=== PATIENT | male | born 1945 | race African-American/Black ===

== ENCOUNTER 2017-06-19 12:47 | Inpatient (IN) | payer OTHER ==
[2017-06-19] VITALS (31 sets, daily range): BP systolic 47–177; BP diastolic 29–105
[~2017-06-19] VITALS: Ht 162.6 cm; Wt 59.0 kg
[2017-06-19 13:25] LABS: BASOPHILS % (AUTO) 1.8 % (0.0-2.0); EOSINOPHILS % (AUTO) 0.4 % (0.0-3.0); MEAN CORPUSCULAR HEMOGLOBIN 28.5 PG (27.0-31.0); MEAN CORPUSCULAR HGB CONC 29.7 G/DL (32.0-36.0); MEAN CORPUSCULAR VOLUME 96 FL (80-99); MEAN PLATELET VOLUME 7.1 FL (6.5-10.1); MONOCYTES % (AUTO) 17.5 % (1.0-10.0); NEUTROPHILS % (AUTO) 48.3 % (45.0-75.0); PLATELET COUNT 147 K/UL (150-450); RED BLOOD COUNT 3.77 M/UL (4.70-6.10); WHITE BLOOD COUNT 4.8 K/UL (4.8-10.8)
[2017-06-19] MEDS ORDERED: Solu-MEDROL 125mg Inj ONE (13:27)
[2017-06-19] MEDS: Solu-MEDROL 125mg Inj IVP ONE ×2 (13:29→14:14)
[2017-06-19 13:33] LABS: INR 1.1 (0.9-1.1); PROTHROMBIN TIME 11.8 SEC (9.30-11.50)
[2017-06-19 13:43] LABS: TROPONIN I < 0.30 ng/mL (<=0.30)
[2017-06-19 13:45] LABS: ALANINE AMINOTRANSFERASE 30 U/L (3-41); ALBUMIN/GLOBULIN RATIO 0.9 (1.0-2.7); AMYLASE 140 U/L (10-110); ANION GAP 10 (5-15); ASPARTATE AMINO TRANSFERASE 34 U/L (5-40); CALCIUM 8.9 mg/dL (8.6-10.2); CARBON DIOXIDE 28 mEQ/L (20-30); CHLORIDE 98 mEQ/L (98-107); CREATININE 0.7 mg/dL (0.7-1.2); HEMOLYSIS 24; POTASSIUM 5.8 mEQ/L (3.4-4.9); SODIUM 136 mEQ/L (135-145); TOTAL PROTEIN 6.7 g/dL (6.6-8.7)
[2017-06-19 13:48] LABS: REFLEX LACTIC ACID YES OR NO YES
[2017-06-19] MEDS ORDERED: Acetaminophen 650 MG SUPP RECTAL ONE ×2 (13:55→14:15)
[2017-06-19 13:56] LABS: CKMB 4.6 ng/mL (< 6.7)
--- NOTE | 2017-06-19 14:03 | Diagnostic Imaging Report ---
Indication: Dyspnea Comparison: None A single view chest radiograph was obtained. Findings: Endotracheal tube is in good position. There is overlying precordial leads and a defibrillator pad that obscures imaging as well as moderate rotation. There are bilateral infiltrates suspected. Bones are osteopenic. Heart appears slightly enlarged. Impression: Limited evaluation. Bilateral infiltrates. Endotracheal tube in good position
[2017-06-19] MEDS ORDERED: Unasyn 3gm Inj ONE (14:13)
[2017-06-19] MEDS ORDERED: Ampicillin/Sulbactam Sod 3 GM in NS 110 ML IVPB ONE (14:15)
[2017-06-19] MEDS ORDERED: Morphine Sulfate 2mg/ml Inj IVP PRN ×2 (14:45→16:15)
[2017-06-19] MEDS ORDERED: DuoNeb 0.5-3(2.5)mg/3ml neb HHN PRN ×2 (14:45)
[2017-06-19] MEDS ORDERED: Sodium Polystyrene Sulfonate Enema RECTAL ONE (14:45)
[2017-06-19] MEDS ORDERED: Morphine Sulfate 4mg/ml Inj IVP PRN (14:45)
[2017-06-19] MEDS ORDERED: Nitroglycerin Subl 0.4mg tab (Bottle Of 25) SL PRN (14:45)
[2017-06-19] MEDS ORDERED: Levophed 4mg/4mL Inj IV ONE (15:09)
[2017-06-19] MEDS ORDERED: LISINOPRIL-HCT1 EAC2 ORAL (15:18)
[2017-06-19] MEDS ORDERED: SIMETHICONE80 MG ORAL (15:18)
[2017-06-19] MEDS ORDERED: POLYETHYLENE GL17 GM ORAL (15:18)
[2017-06-19] MEDS ORDERED: VITAMIN D400 INTLU ORAL (15:18)
[2017-06-19] MEDS ORDERED: OMEPRAZOLE20 M2 ORAL (15:18)
[2017-06-19] MEDS ORDERED: LATANOPROST2.5 ML BOTH EYES (15:18)
[2017-06-19] MEDS ORDERED: SENNOSIDES8.6 MG ORAL (15:18)
[2017-06-19] MEDS ORDERED: BRIMONIDINE TART5 ML BOTH EYES (15:18)
[2017-06-19] MEDS ORDERED: DUONEB 0.5-3(2.53 ML HHN (15:18)
--- NOTE | 2017-06-19 16:08 | Emergency Room Report ---
History of Present Illness General Chief Complaint: Altered Level of Consciousness Source: Medical Record Present Illness HPI Patient is a 72-year-old male who presented after increased altered level consciousness. Patient was brought in by EMS. Patient noted be afebrile at his senior living. Patient had prior history of prior brain dysfunction. Patient was minimally cognitive at baseline. Had temperature up to 101. Patient noted have some increased difficulty breathing. Allergies: Coded Allergies: IBUPROFEN (Verified Allergy, Unknown, 06/19/17) Patient History Past Medical History: see triage record, COPD Reviewed Nursing Documentation: PMH: Agreed, PSxH: Agreed Nursing Documentation-PMH Past Medical History: No History, Except For Hx Hypertension: Yes Hx COPD: Yes Hx Diabetes: Yes Hx Gastrointestinal Problems: Yes - prostate CA, GERD Hx Seizures: Yes Review of Systems All Other Systems: limited - by mental status and acuity Physical Exam Vital Signs Date Time Temp Pulse Resp B/P Pulse Ox O2 Delivery O2 Flow Rate FiO2 06/19/17 12:54 110 22 148/63 100 Nasal Cannula 2.0 06/19/17 13:01 100 06/19/17 14:49 97.6 General Appearance: moderate distress, severe distress, Chronically Ill, Stupor ENT: uvula midline, dry mucus membranes Neck: limited range of motion, other Respiratory: accessory muscle use, rales, rhonchi, wheezing Cardiovascular #1: tachycardia Gastrointestinal: normal bowel sounds, non tender, soft Musculoskeletal: decreased range of motion, other - bilateral lower extremity paresis Neurologic: aphasia, motor weakness Psychiatric: other - nonverbal, aphasic Skin: normal color, no rash Procedures Critical Care Time Critical Care Time Patient had a critical medical condition which untreated could potentially result in life or limb threatening injury. Total critical care time excluding procedures approximately 45 minutes. Central Line Central Line : Consent: Emergent Central Line Lumen: triple Maximal Sterile Barrier Tech: yes cap, yes mask, yes sterile gown, yes sterile gloves, yes large sterile sheet, yes hand hygiene, yes chlorhexidine prep Central Line Postion: internal jugular (R) Anesthesia: local Complications: none Central Line Post Position: sutured, good blood return, position confirmed w / CXR Attempts: Other - three, attempted right IJ without success under ultrasound guidance, right EJ unsuccessful Complications: Other - hematoma Intubation Intubation : Consent: Emergent Intubation Method: orotracheal Tube Size (cm): 7.5 Medications: Etomidate, Rocuronium Breath Sounds after Intubation: equal Intubation Complications: no complications Post Intubation Xray: Yes Attempts: Other - two Patient Tolerated: Well Complications: None Medical Decision Making Diagnostic Impression: Primary Impression: Acute respiratory failure Additional Impressions: Pneumonia Hyperkalemia ER Course Patient presented for shortness of breath.Differential included but was not limited to anemia, pneumonia, pneumothorax, myocardial infarction, pericardial effusion, congestive heart failure, acidosis. Because of complexity of patient' s case laboratory testing and imaging studies were ordered. The patient was given multiple doses of medication as per code sheet after patient became bradycardic. The patient was intubated and started on mechanical ventilation. He was given IV magnesium. The patient was noted to have some evidence of pulmonary edema. He was given IV antibiotics. Dr. Jeff Hamm was contacted for inpatient management Labs Test 06/19/17 13:10 06/19/17 15:38 White Blood Count 4.8 K/UL (4.8-10.8) Red Blood Count 3.77 M/UL (4.70-6.10) Hemoglobin 10.7 G/DL (14.2-18.0) Hematocrit 36.1 % (42.0-52.0) Mean Corpuscular Volume 96 FL (80-99) Mean Corpuscular Hemoglobin 28.5 PG (27.0-31.0) Mean Corpuscular Hemoglobin Concent 29.7 G/DL (32.0-36.0) Red Cell Distribution Width 17.0 % (11.6-14.8) Platelet Count 147 K/UL (150-450) Mean Platelet Volume 7.1 FL (6.5-10.1) Neutrophils (%) (Auto) 48.3 % (45.0-75.0) Lymphocytes (%) (Auto) 32.0 % (20.0-45.0) Monocytes (%) (Auto) 17.5 % (1.0-10.0) Eosinophils (%) (Auto) 0.4 % (0.0-3.0) Basophils (%) (Auto) 1.8 % (0.0-2.0) Prothrombin Time 11.8 SEC (9.30-11.50) Prothromb Time International Ratio 1.1 (0.9-1.1) Activated Partial Thromboplast Time 35 SEC (23-33) Sodium Level 136 mEQ/L (135-145) Potassium Level 5.8 mEQ/L (3.4-4.9) Chloride Level 98 mEQ/L (98-107) Carbon Dioxide Level 28 mEQ/L (20-30) Anion Gap 10 (5-15) Blood Urea Nitrogen 18 mg/dL (7-23) Creatinine 0.7 mg/dL (0.7-1.2) Estimat Glomerular Filtration Rate mL/min (>60) Glucose Level 122 mg/dL (74-106) Calcium Level 8.9 mg/dL (8.6-10.2) Total Bilirubin < 0.2 mg/dL (0.0-1.2) Aspartate Amino Transf (AST/SGOT) 34 U/L (5-40) Alanine Aminotransferase (ALT/SGPT) 30 U/L (3-41) Alkaline Phosphatase 103 U/L (40-129) Total Creatine Kinase 180 U/L (38-174) Creatine Kinase MB 4.6 ng/mL (< 6.7) Creatine Kinase MB Relative Index 2.5 Troponin I < 0.30 ng/mL (<=0.30) Total Protein 6.7 g/dL (6.6-8.7) Albumin 3.2 g/dL (3.5-5.2) Globulin 3.5 g/dL Albumin/Globulin Ratio 0.9 (1.0-2.7) Amylase Level 140 U/L (10-110) EKG Diagnostic Results Rate: tachycardiac - 129 Rhythm: other - afibrilation rvr ST Segments: no acute changes Rhythm Strip Diag. Results EP Interpretation: yes Rhythm: NSR - 110, no PVC's, no ectopy Last Vital Signs Date Time Temp Pulse Resp B/P Pulse Ox O2 Delivery O2 Flow Rate FiO2 06/19/17 15:28 106 16 100 06/19/17 14:49 97.6 83/64 94 Mechanical Ventilator 06/19/17 12:54 2.0 Status: unchanged Disposition: ADMITTED INPATIENT Condition: Critical Referrals: BISI KENDRICK (PCP) Dwayne Arellano Jun 19, 2017 16:08
[2017-06-19 16:24] LABS: ABG ALLEN TEST POSITIVE; ABG BASE EXCESS -3.4; ABG PCO2 70.1 mmHg (35.0-45.0)
[2017-06-19] MEDS ORDERED: D5 1/2NS 1,000 ML IV SCH (16:45)
[2017-06-19] MEDS ORDERED: NovoLOG Insulin Flexpen SUBQ SCH (17:00)
[2017-06-19] MEDS: Solu-MEDROL 125mg Inj IV SCH ×2 (18:30→23:38)
--- NOTE | 2017-06-19 19:44 | Cardiology Progress Note ---
Assessment/Plan Assessment/Plan [id number] full note dicataed Objective Last 24 Hour Vital Signs Date Time Temp Pulse Resp B/P Pulse Ox O2 Delivery O2 Flow Rate FiO2 06/19/17 18:45 71 20 100 06/19/17 17:30 122 20 119/69 99 Mechanical Ventilator 55 06/19/17 17:25 122 20 108/71 100 Mechanical Ventilator 55 06/19/17 17:00 101/60 06/19/17 17:00 121 20 55 06/19/17 16:55 115 21 100 Mechanical Ventilator 50.0 55 06/19/17 16:54 55 06/19/17 16:54 2.0 50 06/19/17 16:50 114 20 100 Mechanical Ventilator 50.0 55 06/19/17 16:30 106/60 06/19/17 16:27 116 16 117/62 99 Mechanical Ventilator 100 06/19/17 16:15 117/62 06/19/17 16:00 133/70 06/19/17 15:45 114/74 06/19/17 15:40 97.2 110 16 114/74 99 Mechanical Ventilator 100 06/19/17 15:30 55 06/19/17 15:30 72/64 06/19/17 15:28 106 16 100 06/19/17 15:26 64/50 06/19/17 15:19 76/51 06/19/17 14:49 97.6 117 14 83/64 94 Mechanical Ventilator 100 06/19/17 13:53 100 06/19/17 13:40 174 14 Mechanical Ventilator 100 06/19/17 13:40 174 14 100 06/19/17 13:38 189 34 175/105 Endotracheal Tube 100 06/19/17 13:01 54 12 Ambu-Bag 100 06/19/17 12:54 110 22 148/63 100 Nasal Cannula 2.0 Laboratory Tests Test 06/19/17 13:10 06/19/17 15:38 06/19/17 16:19 White Blood Count 4.8 K/UL (4.8-10.8) Red Blood Count 3.77 M/UL (4.70-6.10) L Hemoglobin 10.7 G/DL (14.2-18.0) L Hematocrit 36.1 % (42.0-52.0) L Mean Corpuscular Volume 96 FL (80-99) Mean Corpuscular Hemoglobin 28.5 PG (27.0-31.0) Mean Corpuscular Hemoglobin Concent 29.7 G/DL (32.0-36.0) L Red Cell Distribution Width 17.0 % (11.6-14.8) H Platelet Count 147 K/UL (150-450) L Mean Platelet Volume 7.1 FL (6.5-10.1) Neutrophils (%) (Auto) 48.3 % (45.0-75.0) Lymphocytes (%) (Auto) 32.0 % (20.0-45.0) Monocytes (%) (Auto) 17.5 % (1.0-10.0) H Eosinophils (%) (Auto) 0.4 % (0.0-3.0) Basophils (%) (Auto) 1.8 % (0.0-2.0) Prothrombin Time 11.8 SEC (9.30-11.50) H Prothromb Time International Ratio 1.1 (0.9-1.1) Activated Partial Thromboplast Time 35 SEC (23-33) H Sodium Level 136 mEQ/L (135-145) Potassium Level 5.8 mEQ/L (3.4-4.9) H Chloride Level 98 mEQ/L (98-107) Carbon Dioxide Level 28 mEQ/L (20-30) Anion Gap 10 (5-15) Blood Urea Nitrogen 18 mg/dL (7-23) Creatinine 0.7 mg/dL (0.7-1.2) Estimat Glomerular Filtration Rate mL/min (>60) Glucose Level 122 mg/dL (74-106) H Lactic Acid Level 3.50 mmol/L (0.66-2.22) H 3.40 mmol/L (0.66-2.22) H Uric Acid 6.1 mg/dL (3.0-7.5) Calcium Level 8.9 mg/dL (8.6-10.2) Total Bilirubin < 0.2 mg/dL (0.0-1.2) Aspartate Amino Transf (AST/SGOT) 34 U/L (5-40) Alanine Aminotransferase (ALT/SGPT) 30 U/L (3-41) Alkaline Phosphatase 103 U/L (40-129) Total Creatine Kinase 180 U/L (38-174) H Creatine Kinase MB 4.6 ng/mL (< 6.7) Creatine Kinase MB Relative Index 2.5 Troponin I < 0.30 ng/mL (<=0.30) Total Protein 6.7 g/dL (6.6-8.7) Albumin 3.2 g/dL (3.5-5.2) L Globulin 3.5 g/dL Albumin/Globulin Ratio 0.9 (1.0-2.7) L Amylase Level 140 U/L (10-110) H Arterial Blood pH 7.182 (7.350-7.450) Arterial Blood Partial Pressure CO2 70.1 mmHg (35.0-45.0) *H Arterial Blood Partial Pressure O2 153.1 mmHg (75.0-100.0) H Arterial Blood HCO3 25.7 mmol/L (22.0-26.0) Arterial Blood Oxygen Saturation 98.1 % (92.0-98.0) H Arterial Blood Base Excess -3.4 Raphael Test Positive MELINDA BALLARD Jun 19, 2017 19:44
[2017-06-19 20:06] LABS: ABG ALLEN TEST POSITIVE; ABG BASE EXCESS -11.6; ABG PCO2 46.3 mmHg (35.0-45.0)
[2017-06-19 20:08] LABS: BASOPHILS % (AUTO) 0.7 % (0.0-2.0); LYMPHOCYTES % (AUTO) 8.9 % (20.0-45.0); MEAN CORPUSCULAR HEMOGLOBIN 31.1 PG (27.0-31.0); MEAN CORPUSCULAR HGB CONC 32.1 G/DL (32.0-36.0); MEAN CORPUSCULAR VOLUME 97 FL (80-99); MEAN PLATELET VOLUME 7.5 FL (6.5-10.1); MONOCYTES % (AUTO) 6.3 % (1.0-10.0); NEUTROPHILS % (AUTO) 84.1 % (45.0-75.0); PLATELET COUNT 109 K/UL (150-450); RED CELL DISTRIBUTION WIDTH 16.6 % (11.6-14.8); WHITE BLOOD COUNT 9.4 K/UL (4.8-10.8)
[2017-06-19 20:22] LABS: ALANINE AMINOTRANSFERASE 441 U/L (3-41); ANION GAP 23 (5-15); ASPARTATE AMINO TRANSFERASE 728 U/L (5-40); CALCIUM 9.8 mg/dL (8.6-10.2); CARBON DIOXIDE 18 mEQ/L (20-30); CHLORIDE 100 mEQ/L (98-107); HEMOLYSIS 53; POTASSIUM 5.1 mEQ/L (3.4-4.9); SODIUM 141 mEQ/L (135-145); TOTAL PROTEIN 5.5 g/dL (6.6-8.7)
[2017-06-19] MEDS: Piperacillin/Tazobactam 3.375 GM in NS 110 ML IVPB SCH (20:27)
[2017-06-19 20:35] LABS: REFLEX LACTIC ACID YES OR NO YES
[2017-06-19 20:48] LABS: TROPONIN I 0.86 ng/mL (<=0.30)
[2017-06-19] MEDS: Heparin 5000 units/ml inj SUBQ SCH (21:00)
[2017-06-19] MEDS: D5NS 1,000 ML IV SCH (21:20)
--- NOTE | 2017-06-19 22:02 | Emergency Room Report ---
History of Present Illness General Chief Complaint: Altered Level of Consciousness Source: Medical Record Present Illness Allergies: Coded Allergies: IBUPROFEN (Verified Allergy, Unknown, 06/19/17) Nursing Documentation-[facility] Past Medical History: No History, Except For Hx Hypertension: Yes Hx COPD: Yes Hx Diabetes: Yes Hx Gastrointestinal Problems: Yes - prostate CA, GERD Hx Seizures: Yes Physical Exam Vital Signs Date Time Temp Pulse Resp B/P Pulse Ox O2 Delivery O2 Flow Rate FiO2 06/19/17 12:54 110 22 148/63 100 Nasal Cannula 2.0 06/19/17 13:01 100 06/19/17 13:38 100.6 Procedures Critical Care Time Critical Care Time i. I feel this is a highly complex case requiring extensive working including EKG/Rhythm strip, Xray/CT/US, Blood/urine lab work, repeat exams while in ED, and administration of strong opiates/narcotics for pain control, admission to hospital or close patient follow up. Total time: 30 min bedside evaluation and treatment excludes procedures (EKG). Reason for critical care: Cardiac arrest Possible complications: hypotension, hypertension, [place], shock, arrhythmias, metabolic acidosis, end organ damage, respiratory failure. Interventions: ACLS, chest compressions. Defibrillation. Course: Patient coded in the ICU. Initial rhythm asystole. CODE BLUE initiated and this patient regained pulses. Patient required defibrillation 3 times. Patient coded a second time with initial rhythm of asystole. CODE BLUE initiated and patient did regained pulses. At this time I did discuss with family poor prognosis for the patient. Shortly after patient coded a third time but did regained pulses. Prognosis is poor Consultations: nursing staff, EMS, family Performed by: Dr Henson Tolerated well condition = critical j. because of unstable vital signs this patient had a condition that could potentially threaten life or limb. I feel this is a critical patient who required my full attention while patient was considered critical. Total Critical Care Time excluding procedures was greater than 35 minutes Cardioversion Cardioversion: Consent: Emergent Indication: Other - vfib Type: Desynchonis Response: Sinus Attempts: Other - 3 Patient Tolerated: Well Complications: None CPR/Code Blue CPR/Code Blue Narrative See CODE BLUE sheet for full narrative Medical Decision Making Diagnostic Impression: Primary Impression: Acute respiratory failure Additional Impressions: Pneumonia Hyperkalemia ER Course I was called to light with his CODE BLUE in the ICU. Patient lost pulses. Initial rhythm asystole. Chest compressions started. Patient given medications. Rhythm turn to ventricular fibrillation patient was defibrillated 3 times. Patient ultimately regained pulses. Patient coded 2 more times but regained pulses after chest compressions and few rounds of medication. I did discuss with the daughter the prognosis for the patient. At this point the patient coded a total of 7 times since he came to the ER. Daughter states she will discuss with her brother the advance directives for their father. patient remains in critical condition Last Vital Signs Date Time Temp Pulse Resp B/P Pulse Ox O2 Delivery O2 Flow Rate FiO2 06/19/17 21:05 119/69 06/19/17 20:35 107 20 100 06/19/17 17:30 99 Mechanical Ventilator 06/19/17 16:55 50.0 06/19/17 15:40 97.2 Status: improved Disposition: ADMITTED INPATIENT Condition: Critical Referrals: BISI KENDRICK (PCP) LUZMARIA HENSON M.D. Jun 19, 2017 22:01
[2017-06-19] MEDS: NovoLOG Insulin Flexpen SUBQ SCH (23:38)
[2017-06-20] VITALS (66 sets, daily range): BP systolic 72–177; BP diastolic 47–98
[2017-06-20 05:28] LABS: MEAN CORPUSCULAR HEMOGLOBIN 29.1 PG (27.0-31.0); MEAN CORPUSCULAR HGB CONC 30.5 G/DL (32.0-36.0); MEAN CORPUSCULAR VOLUME 95 FL (80-99); MEAN PLATELET VOLUME 6.8 FL (6.5-10.1); PLATELET COUNT 142 K/UL (150-450); RED BLOOD COUNT 3.54 M/UL (4.70-6.10); RED CELL DISTRIBUTION WIDTH 16.9 % (11.6-14.8); WHITE BLOOD COUNT 14.9 K/UL (4.8-10.8)
[2017-06-20] MEDS: Solu-MEDROL 125mg Inj IV SCH ×3 (05:36→17:58)
[2017-06-20] MEDS: NovoLOG Insulin Flexpen SUBQ SCH ×3 (05:36→17:56)
[2017-06-20 05:41] LABS: INR 1.5 (0.9-1.1); PROTHROMBIN TIME 15.8 SEC (9.30-11.50)
--- NOTE | 2017-06-20 05:45 | Consultation ---
DATE OF CONSULTATION: 06/19/2017 CRITICAL CARE CONSULTATION CONSULTING PHYSICIAN: Nehemias Macario M.D. REASON FOR REFERRAL: Cardiopulmonary arrest. HISTORY OF PRESENT ILLNESS: This is an elderly gentleman, a resident of convalescent facility who is in the intensive care unit, has had four episodes of cardiopulmonary arrest. He was resuscitated, has had bradycardia and PEA on some other occasions here. The patient in convalescent facility was apparently more altered than normal for two hours prior to admission. The patient's family noted confused, not speaking, not feel hot to touch, has had a fever and urinary tract infection. No vomiting, bedbound, transferred to the emergency room. In the emergency room, he had several bouts of cardiac arrest and was subsequently admitted to the hospital with severe lactic acidosis. Lactic acid level of 3.5. The pH is 7.18, pCO2 of 70, pO2 of 153 with bicarbonate of 25, 98% saturation. PAST MEDICAL HISTORY: Obtained from the records here and the chart indicates history of seizures, urinary tract infection, chronic obstructive pulmonary disease, hypertension, prostate carcinoma, glaucoma, gastroesophageal reflux disease, hyperlipidemia, abnormal posture, dysphagia, sepsis, pneumonia, respiratory failure, cognitive dysfunction, diabetes mellitus, encephalopathy, and fracture of the bony thorax. MEDICATIONS: Include Tylenol, vitamin D, Advair Diskus, albuterol, calcium, Atrovent, lisinopril HCT 12.5 mg one tablet daily, multivitamin, omeprazole, and polyethylene glycol. PHYSICAL EXAMINATION: VITAL SIGNS: Blood pressure varied between 101 to 119/60 to 69, heart rates in the 71 to 122 range, saturations of 99 to 100% on 55 to 100% FiO2. GENERAL: Unresponsive elderly gentleman, on a mechanical ventilator, noncommunicative, not responsive. NECK: Supple. LUNGS: Decreased breath sounds. breath sounds noted. CARDIAC: Distant heart sounds. At the present time, regular rhythm. ABDOMEN: Somewhat distended. EXTREMITIES: There is no edema. NEUROLOGIC: Unresponsive and noncommunicative. LABORATORY AND DIAGNOSTIC DATA: Sodium 136, potassium 5.8, chloride 98, bicarbonate 28, BUN of 18, creatinine 0.7, and glucose of 122. First set of cardiac enzymes were negative. EKG shows sinus bradycardia at a rate of 55, had also EKG that showed right bundle-branch conduction with tachycardia with possible atrial fibrillation and sinus tachycardia as well. Lactic acid 3.4. Chest x-ray read by radiologist has included limited evaluation, bilateral pulmonary infiltrate . ASSESSMENT: 1. Recurrent bouts of cardiopulmonary arrest with pulseless electrical activity and bradycardia. 2. History of cognitive dysfunction. 3. Apparently recent urinary tract infection. 4. Severe metabolic acidosis. 5. Anemia. PLAN: This patient was seen in cardiology consultation. The patient's potassium was a bit elevated earlier, acidosis was severe earlier, that was prior to his last five cardiac arrests. An ABG should be ordered, repeat laboratories including potassium and magnesium should be ordered. Cardiac enzymes will be checked. Lactic acid level will be checked. Blood gases should be checked as well. The prognosis, however, is extremely poor after six arrests. I would be inclined and do hope that the family would consider decreasing the level of care in this patient so the patient does not get resuscitated again. Nonetheless, the etiologies for arrest are multiple including infectious, acidosis, electrolyte abnormalities, cardiac injury, sepsis, pulmonary issues, CVAs, and the likelihood of him having a meaningful recovery from the six arrests will be low. Nonetheless, continue treatment as so far decided on until the family decides or until he does not respond to resuscitative efforts. Critical care consultation duration was 45 minutes. Nehemias Macario M.D. DR: Onofre JOB#: [id number] CC:
[2017-06-20] MEDS: Piperacillin/Tazobactam 3.375 GM in NS 110 ML IVPB SCH ×3 (05:54→21:24)
[2017-06-20 06:02] LABS: REFLEX LACTIC ACID YES OR NO YES
[2017-06-20 06:04] LABS: ALBUMIN/GLOBULIN RATIO 0.9 (1.0-2.7); ANION GAP 22 (5-15); CALCIUM 8.9 mg/dL (8.6-10.2); CARBON DIOXIDE 18 mEQ/L (20-30); CHLORIDE 97 mEQ/L (98-107); CREATININE 1.3 mg/dL (0.7-1.2); CRP QUANT 5.8 mg/dL (< 0.5); HEMOLYSIS 26; MAGNESIUM 2.1 mg/dL (1.7-2.5); PHOSPHORUS 6.5 mg/dL (2.5-4.8); POTASSIUM 4.9 mEQ/L (3.4-4.9); SODIUM 137 mEQ/L (135-145); TOTAL PROTEIN 6.1 g/dL (6.6-8.7)
[2017-06-20 06:16] LABS: ALANINE AMINOTRANSFERASE > 700 U/L (3-41); ASPARTATE AMINO TRANSFERASE > 853 U/L (5-40)
[2017-06-20 06:17] LABS: HEMOLYSIS 40; IRON 50 ug/dL (59-158); TOTAL IRON BINDING CAPACITY 228 ug/dL (250-400)
[2017-06-20 06:50] LABS: ERYTHROCYTE SEDIMENTATION RATE 19 MM/HR (0-20)
[2017-06-20] MEDS: D5NS 1,000 ML IV SCH ×2 (06:57→17:09)
[2017-06-20 07:00] LABS: LACTATE DEHYDROGENASE 1850 U/L (135-230)
[2017-06-20 07:16] LABS: TROPONIN I 0.66 ng/mL (<=0.30)
[2017-06-20 07:19] LABS: BAND NEUTROPHILS % (MANUAL) 14 % (0-8); LYMPHOCYTES % (MANUAL) 4 % (20-45); NEUTROPHILS % (MANUAL) 79 % (45-75); TOTAL CELLS COUNTED 100
[2017-06-20 07:21] LABS: ANISOCYTOSIS 1+; BASOPHILS % (MANUAL) 0 % (0-2); EOSINOPHILS % (MANUAL) 0 % (0-3); HYPOCHROMASIA 1+; PLATELET ESTIMATE ADEQUATE
[2017-06-20 07:22] LABS: PLATELET MORPHOLOGY NORMAL
--- NOTE | 2017-06-20 07:38 | Cardiology Progress Note ---
Assessment/Plan Assessment/Plan 1. Recurrent bouts of cardiopulmonary arrest with pulseless electrical activity and bradycardia. 2. History of cognitive dysfunction. 3. Apparently recent urinary tract infection. 4. Severe metabolic acidosis. 5. Anemia. 6. 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 intermittent RBBB 8. arf 9. abn lft likely shock liver 10. coagulopathy no furtrh arrest over nite d/sw jean trejo the morning hours remain on pressor for bp support ekg reviewed no sig st changes tel reviewed all labs noted will add ggtp echo venous duplex of lwoer ext vent suppor empiric abx repeat cxr follow renal function ivf watch lft folwo coags prognosis poor post several arrest remain critically ill and at risk of dying Subjective ROS Limited/Unobtainable: Yes Objective Last 24 Hour Vital Signs Date Time Temp Pulse Resp B/P Pulse Ox O2 Delivery O2 Flow Rate FiO2 06/20/17 07:00 108 20 104/72 100 Mechanical Ventilator 70 06/20/17 06:57 104/72 06/20/17 06:45 106 20 101/66 100 Mechanical Ventilator 70 06/20/17 06:34 106 20 70 06/20/17 06:30 106 20 98/64 100 Mechanical Ventilator 70 06/20/17 06:15 106 20 98/64 100 Mechanical Ventilator 70 06/20/17 06:02 125/83 06/20/17 06:00 106 20 91/66 100 Mechanical Ventilator 70 06/20/17 05:45 111 20 122/77 100 Mechanical Ventilator 70 06/20/17 05:30 111 20 125/85 100 Mechanical Ventilator 70 06/20/17 05:15 111 20 70 06/20/17 05:15 112 20 125/85 100 Mechanical Ventilator 70 06/20/17 05:00 110 20 111/76 100 Mechanical Ventilator 70 06/20/17 05:00 111/76 06/20/17 04:30 110 20 112/74 100 Mechanical Ventilator 70 06/20/17 04:00 109 06/20/17 04:00 98.7 109 20 114/74 100 Mechanical Ventilator 70 06/20/17 04:00 114/74 06/20/17 04:00 70 06/20/17 03:30 109 20 98/66 100 Mechanical Ventilator 70 06/20/17 03:20 109 20 70 06/20/17 03:00 102/66 06/20/17 03:00 109 20 102/66 100 Mechanical Ventilator 70 06/20/17 02:30 110 20 105/78 100 Mechanical Ventilator 70 06/20/17 02:00 102/70 06/20/17 02:00 110 20 102/70 100 Mechanical Ventilator 70 06/20/17 01:45 111 20 101/70 100 Mechanical Ventilator 80 06/20/17 01:30 109 20 107/76 100 Mechanical Ventilator 80 06/20/17 01:30 107/76 06/20/17 01:22 107 20 70 06/20/17 01:15 109 20 96/65 100 Mechanical Ventilator 80 06/20/17 01:00 109 20 107/76 100 Mechanical Ventilator 80 06/20/17 01:00 107/76 06/20/17 00:45 109 20 111/78 100 Mechanical Ventilator 80 06/20/17 00:30 109 20 111/78 100 Mechanical Ventilator 80 06/20/17 00:15 109 20 108/75 100 Mechanical Ventilator 80 06/20/17 00:00 109 06/20/17 00:00 114/78 06/20/17 00:00 80 06/20/17 00:00 97.9 109 20 114/78 100 Mechanical Ventilator 80 06/19/17 23:45 110 20 96/67 100 Mechanical Ventilator 80 06/19/17 23:30 109 20 96/67 100 Mechanical Ventilator 80 06/19/17 23:20 104 20 80 06/19/17 23:15 107 20 92/65 100 Mechanical Ventilator 80 06/19/17 23:00 109 20 64/50 100 Mechanical Ventilator 80 06/19/17 23:00 64/50 06/19/17 22:45 109 20 90/65 100 Mechanical Ventilator 100 06/19/17 22:30 109 20 89/71 100 Mechanical Ventilator 100 06/19/17 22:15 110 20 89/58 100 Mechanical Ventilator 100 06/19/17 22:00 89/63 06/19/17 21:57 110 20 85/64 100 Mechanical Ventilator 100 06/19/17 21:45 110 20 95/66 100 Mechanical Ventilator 100 06/19/17 21:30 110 20 95/65 100 Mechanical Ventilator 100 06/19/17 21:15 112 20 95/63 100 Mechanical Ventilator 100 06/19/17 21:05 119/69 06/19/17 21:00 108 20 134/95 100 Mechanical Ventilator 100 06/19/17 20:45 108 20 80/61 100 Mechanical Ventilator 100 06/19/17 20:35 107 20 100 06/19/17 20:30 107 20 84/45 100 Mechanical Ventilator 100 06/19/17 20:15 107 20 90/50 100 Mechanical Ventilator 100 06/19/17 20:00 99 06/19/17 20:00 97.7 108 20 89/58 100 Mechanical Ventilator 100 06/19/17 20:00 100 06/19/17 19:45 98 20 101/64 100 Mechanical Ventilator 100 06/19/17 19:15 79 20 177/94 100 Mechanical Ventilator 100 06/19/17 19:00 63 20 47/29 100 Mechanical Ventilator 100 06/19/17 18:45 71 20 100 06/19/17 18:15 89/63 06/19/17 17:30 122 20 119/69 99 Mechanical Ventilator 55 06/19/17 17:30 122 20 119/69 100 Mechanical Ventilator 55 06/19/17 17:25 122 20 108/71 100 Mechanical Ventilator 55 06/19/17 17:00 101/60 06/19/17 17:00 121 20 55 06/19/17 17:00 122 20 90/56 99 Mechanical Ventilator 55 06/19/17 16:55 115 21 100 Mechanical Ventilator 50.0 55 06/19/17 16:54 55 06/19/17 16:54 2.0 50 06/19/17 16:50 114 20 100 Mechanical Ventilator 50.0 55 06/19/17 16:30 106/60 06/19/17 16:27 116 16 117/62 99 Mechanical Ventilator 100 06/19/17 16:15 117/62 06/19/17 16:00 133/70 06/19/17 16:00 111 16 133/70 99 Mechanical Ventilator 100 06/19/17 15:45 114/74 06/19/17 15:40 97.2 110 16 114/74 99 Mechanical Ventilator 100 06/19/17 15:30 55 06/19/17 15:30 72/64 06/19/17 15:30 101 14 94/66 100 Mechanical Ventilator 100 06/19/17 15:28 106 16 100 06/19/17 15:26 64/50 06/19/17 15:19 76/51 06/19/17 15:15 101 14 68/45 100 Mechanical Ventilator 100 06/19/17 15:00 106 14 72/54 100 Mechanical Ventilator 100 06/19/17 14:49 97.6 117 14 83/64 94 Mechanical Ventilator 100 06/19/17 14:15 141 14 94/66 96 Mechanical Ventilator 100 06/19/17 13:53 100 06/19/17 13:40 174 14 Mechanical Ventilator 100 06/19/17 13:40 174 14 100 06/19/17 13:38 100.6 189 34 175/105 Endotracheal Tube 100 06/19/17 13:01 54 12 Ambu-Bag 100 06/19/17 12:54 110 22 148/63 100 Nasal Cannula 2.0 General Appearance: on vent Neck: supple Cardiovascular: normal rate Respiratory/Chest: lungs clear - ant Abdomen: normal bowel sounds, distended Extremities: no swelling Intake and Output 06/19/17 06/20/17 19:00 07:00 Intake Total 1200 ml 2191.25 ml Output Total 500 ml Balance 1200 ml 1691.25 ml Intake IV Total 1200 ml 2191.25 ml Output Urine Total 500 ml # Voids 1 1 # Bowel Movements 2 Laboratory Tests Test 06/19/17 13:10 06/19/17 15:38 06/19/17 16:19 06/19/17 19:45 White Blood Count 4.8 K/UL (4.8-10.8) 9.4 K/UL (4.8-10.8) # Red Blood Count 3.77 M/UL (4.70-6.10) L 3.00 M/UL (4.70-6.10) L Hemoglobin 10.7 G/DL (14.2-18.0) L 9.3 G/DL (14.2-18.0) L Hematocrit 36.1 % (42.0-52.0) L 29.1 % (42.0-52.0) L Mean Corpuscular Volume 96 FL (80-99) 97 FL (80-99) Mean Corpuscular Hemoglobin 28.5 PG (27.0-31.0) 31.1 PG (27.0-31.0) H Mean Corpuscular Hemoglobin Concent 29.7 G/DL (32.0-36.0) L 32.1 G/DL (32.0-36.0) Red Cell Distribution Width 17.0 % (11.6-14.8) H 16.6 % (11.6-14.8) H Platelet Count 147 K/UL (150-450) L 109 K/UL (150-450) L Mean Platelet Volume 7.1 FL (6.5-10.1) 7.5 FL (6.5-10.1) Neutrophils (%) (Auto) 48.3 % (45.0-75.0) 84.1 % (45.0-75.0) H Lymphocytes (%) (Auto) 32.0 % (20.0-45.0) 8.9 % (20.0-45.0) L Monocytes (%) (Auto) 17.5 % (1.0-10.0) H 6.3 % (1.0-10.0) Eosinophils (%) (Auto) 0.4 % (0.0-3.0) 0.0 % (0.0-3.0) Basophils (%) (Auto) 1.8 % (0.0-2.0) 0.7 % (0.0-2.0) Prothrombin Time 11.8 SEC (9.30-11.50) H Prothromb Time International Ratio 1.1 (0.9-1.1) Activated Partial Thromboplast Time 35 SEC (23-33) H Sodium Level 136 mEQ/L (135-145) 141 mEQ/L (135-145) Potassium Level 5.8 mEQ/L (3.4-4.9) H 5.1 mEQ/L (3.4-4.9) H Chloride Level 98 mEQ/L (98-107) 100 mEQ/L (98-107) Carbon Dioxide Level 28 mEQ/L (20-30) 18 mEQ/L (20-30) L Anion Gap 10 (5-15) 23 (5-15) H Blood Urea Nitrogen 18 mg/dL (7-23) 22 mg/dL (7-23) Creatinine 0.7 mg/dL (0.7-1.2) 1.0 mg/dL (0.7-1.2) Estimat Glomerular Filtration Rate mL/min (>60) mL/min (>60) Glucose Level 122 mg/dL (74-106) H 137 mg/dL (74-106) H Lactic Acid Level 3.50 mmol/L (0.66-2.22) H 3.40 mmol/L (0.66-2.22) H 14.20 mmol/L (0.66-2.22) H Uric Acid 6.1 mg/dL (3.0-7.5) Calcium Level 8.9 mg/dL (8.6-10.2) 9.8 mg/dL (8.6-10.2) Total Bilirubin < 0.2 mg/dL (0.0-1.2) 0.7 mg/dL (0.0-1.2) Aspartate Amino Transf (AST/SGOT) 34 U/L (5-40) 728 U/L (5-40) H Alanine Aminotransferase (ALT/SGPT) 30 U/L (3-41) 441 U/L (3-41) H Alkaline Phosphatase 103 U/L (40-129) 236 U/L (40-129) H Total Creatine Kinase 180 U/L (38-174) H 288 U/L (38-174) H Creatine Kinase MB 4.6 ng/mL (< 6.7) Creatine Kinase MB Relative Index 2.5 Troponin I < 0.30 ng/mL (<=0.30) 0.86 ng/mL (<=0.30) *H Total Protein 6.7 g/dL (6.6-8.7) 5.5 g/dL (6.6-8.7) L Albumin 3.2 g/dL (3.5-5.2) L 2.8 g/dL (3.5-5.2) L Globulin 3.5 g/dL 2.7 g/dL Albumin/Globulin Ratio 0.9 (1.0-2.7) L 1.0 (1.0-2.7) Amylase Level 140 U/L (10-110) H Arterial Blood pH 7.182 (7.350-7.450) Arterial Blood Partial Pressure CO2 70.1 mmHg (35.0-45.0) *H Arterial Blood Partial Pressure O2 153.1 mmHg (75.0-100.0) H Arterial Blood HCO3 25.7 mmol/L (22.0-26.0) Arterial Blood Oxygen Saturation 98.1 % (92.0-98.0) H Arterial Blood Base Excess -3.4 Raphael Test Positive Test 06/19/17 20:00 06/20/17 04:00 Arterial Blood pH 7.168 (7.350-7.450) Arterial Blood Partial Pressure CO2 46.3 mmHg (35.0-45.0) H Arterial Blood Partial Pressure O2 423.4 mmHg (75.0-100.0) H Arterial Blood HCO3 16.4 mmol/L (22.0-26.0) L Arterial Blood Oxygen Saturation 99.4 % (92.0-98.0) H Arterial Blood Base Excess -11.6 Raphael Test Positive White Blood Count 14.9 K/UL (4.8-10.8) #H Red Blood Count 3.54 M/UL (4.70-6.10) L Hemoglobin 10.3 G/DL (14.2-18.0) L Hematocrit 33.8 % (42.0-52.0) L Mean Corpuscular Volume 95 FL (80-99) Mean Corpuscular Hemoglobin 29.1 PG (27.0-31.0) Mean Corpuscular Hemoglobin Concent 30.5 G/DL (32.0-36.0) L Red Cell Distribution Width 16.9 % (11.6-14.8) H Platelet Count 142 K/UL (150-450) L Mean Platelet Volume 6.8 FL (6.5-10.1) Neutrophils (%) (Auto) % (45.0-75.0) Lymphocytes (%) (Auto) % (20.0-45.0) Monocytes (%) (Auto) % (1.0-10.0) Eosinophils (%) (Auto) % (0.0-3.0) Basophils (%) (Auto) % (0.0-2.0) Differential Total Cells Counted 100 Neutrophils % (Manual) 79 % (45-75) H Lymphocytes % (Manual) 4 % (20-45) L Monocytes % (Manual) 3 % (1-10) Eosinophils % (Manual) 0 % (0-3) Basophils % (Manual) 0 % (0-2) Band Neutrophils 14 % (0-8) H Platelet Estimate Adequate Platelet Morphology Normal Hypochromasia 1+ Anisocytosis 1+ Erythrocyte Sedimentation Rate 19 MM/HR (0-20) Reticulocyte Count Pending Prothrombin Time 15.8 SEC (9.30-11.50) H Prothromb Time International Ratio 1.5 (0.9-1.1) H Activated Partial Thromboplast Time 33 SEC (23-33) Stool Occult Blood Pending Sodium Level 137 mEQ/L (135-145) Potassium Level 4.9 mEQ/L (3.4-4.9) Chloride Level 97 mEQ/L (98-107) L Carbon Dioxide Level 18 mEQ/L (20-30) L Anion Gap 22 (5-15) H Blood Urea Nitrogen 28 mg/dL (7-23) H Creatinine 1.3 mg/dL (0.7-1.2) H Estimat Glomerular Filtration Rate mL/min (>60) Glucose Level 239 mg/dL (74-106) #H Lactic Acid Level Pending Calcium Level 8.9 mg/dL (8.6-10.2) Phosphorus Level 6.5 mg/dL (2.5-4.8) H Magnesium Level 2.1 mg/dL (1.7-2.5) Iron Level 50 ug/dL (59-158) L Total Iron Binding Capacity 228 ug/dL (250-400) L Percent Iron Saturation 22 % (15-50) Unsaturated Iron Binding 178 ug/dL (112-346) Total Bilirubin 0.8 mg/dL (0.0-1.2) Aspartate Amino Transf (AST/SGOT) > 853 U/L (5-40) H Alanine Aminotransferase (ALT/SGPT) > 700 U/L (3-41) H Alkaline Phosphatase 241 U/L (40-129) H Lactate Dehydrogenase 1850 U/L (135-230) H Troponin I 0.66 ng/mL (<=0.30) *H C-Reactive Protein, Quantitative 5.8 mg/dL (< 0.5) H Total Protein 6.1 g/dL (6.6-8.7) L Albumin 2.9 g/dL (3.5-5.2) L Globulin 3.2 g/dL Albumin/Globulin Ratio 0.9 (1.0-2.7) L Carcinoembryonic Antigen 2.3 ng/mL Vitamin B12 Level > 2000 pg/mL (211-946) H Folate Pending MELINDA BALLARD Jun 20, 2017 07:38
[2017-06-20 07:50] LABS: PATH BLOOD SMEAR/OMC SENT TO PATHOLOGIST
[2017-06-20] MEDS: Heparin 5000 units/ml inj SUBQ SCH ×2 (09:00→20:56)
[2017-06-20] MEDS: LORazepam Inj 2mg/ml 1ml IV PRN (09:18)
--- NOTE | 2017-06-20 09:22 | Infectious Diseases Prog Note ---
Assessment/Plan Assessment/Plan ID consult dictated # [id number] Subjective Allergies: Coded Allergies: IBUPROFEN (Verified Allergy, Unknown, 06/19/17) Objective Vital Signs Last 24 Hour Vital Signs Date Time Temp Pulse Resp B/P Pulse Ox O2 Delivery O2 Flow Rate FiO2 06/20/17 08:45 108 20 70 06/20/17 08:00 60 06/20/17 08:00 108 06/20/17 07:00 108 20 104/72 100 Mechanical Ventilator 70 06/20/17 06:57 104/72 06/20/17 06:45 106 20 101/66 100 Mechanical Ventilator 70 06/20/17 06:34 106 20 70 06/20/17 06:30 106 20 98/64 100 Mechanical Ventilator 70 06/20/17 06:15 106 20 98/64 100 Mechanical Ventilator 70 06/20/17 06:02 125/83 06/20/17 06:00 106 20 91/66 100 Mechanical Ventilator 70 06/20/17 05:45 111 20 122/77 100 Mechanical Ventilator 70 06/20/17 05:30 111 20 125/85 100 Mechanical Ventilator 70 06/20/17 05:15 111 20 70 06/20/17 05:15 112 20 125/85 100 Mechanical Ventilator 70 06/20/17 05:00 110 20 111/76 100 Mechanical Ventilator 70 06/20/17 05:00 111/76 06/20/17 04:30 110 20 112/74 100 Mechanical Ventilator 70 06/20/17 04:00 109 06/20/17 04:00 98.7 109 20 114/74 100 Mechanical Ventilator 70 06/20/17 04:00 114/74 06/20/17 04:00 70 06/20/17 03:30 109 20 98/66 100 Mechanical Ventilator 70 06/20/17 03:20 109 20 70 06/20/17 03:00 102/66 06/20/17 03:00 109 20 102/66 100 Mechanical Ventilator 70 06/20/17 02:30 110 20 105/78 100 Mechanical Ventilator 70 06/20/17 02:00 102/70 06/20/17 02:00 110 20 102/70 100 Mechanical Ventilator 70 06/20/17 01:45 111 20 101/70 100 Mechanical Ventilator 80 06/20/17 01:30 109 20 107/76 100 Mechanical Ventilator 80 06/20/17 01:30 107/76 06/20/17 01:22 107 20 70 06/20/17 01:15 109 20 96/65 100 Mechanical Ventilator 80 06/20/17 01:00 109 20 107/76 100 Mechanical Ventilator 80 06/20/17 01:00 107/76 06/20/17 00:45 109 20 111/78 100 Mechanical Ventilator 80 06/20/17 00:30 109 20 111/78 100 Mechanical Ventilator 80 06/20/17 00:15 109 20 108/75 100 Mechanical Ventilator 80 06/20/17 00:00 109 06/20/17 00:00 114/78 06/20/17 00:00 80 06/20/17 00:00 97.9 109 20 114/78 100 Mechanical Ventilator 80 06/19/17 23:45 110 20 96/67 100 Mechanical Ventilator 80 06/19/17 23:30 109 20 96/67 100 Mechanical Ventilator 80 06/19/17 23:20 104 20 80 06/19/17 23:15 107 20 92/65 100 Mechanical Ventilator 80 06/19/17 23:00 109 20 64/50 100 Mechanical Ventilator 80 06/19/17 23:00 64/50 06/19/17 22:45 109 20 90/65 100 Mechanical Ventilator 100 06/19/17 22:30 109 20 89/71 100 Mechanical Ventilator 100 06/19/17 22:15 110 20 89/58 100 Mechanical Ventilator 100 06/19/17 22:00 89/63 06/19/17 21:57 110 20 85/64 100 Mechanical Ventilator 100 06/19/17 21:45 110 20 95/66 100 Mechanical Ventilator 100 06/19/17 21:30 110 20 95/65 100 Mechanical Ventilator 100 06/19/17 21:15 112 20 95/63 100 Mechanical Ventilator 100 06/19/17 21:05 119/69 06/19/17 21:00 108 20 134/95 100 Mechanical Ventilator 100 06/19/17 20:45 108 20 80/61 100 Mechanical Ventilator 100 06/19/17 20:35 107 20 100 06/19/17 20:30 107 20 84/45 100 Mechanical Ventilator 100 06/19/17 20:15 107 20 90/50 100 Mechanical Ventilator 100 06/19/17 20:00 99 06/19/17 20:00 97.7 108 20 89/58 100 Mechanical Ventilator 100 06/19/17 20:00 100 06/19/17 19:45 98 20 101/64 100 Mechanical Ventilator 100 06/19/17 19:15 79 20 177/94 100 Mechanical Ventilator 100 06/19/17 19:00 63 20 47/29 100 Mechanical Ventilator 100 06/19/17 18:45 71 20 100 06/19/17 18:15 89/63 06/19/17 17:30 122 20 119/69 99 Mechanical Ventilator 55 06/19/17 17:30 122 20 119/69 100 Mechanical Ventilator 55 06/19/17 17:25 122 20 108/71 100 Mechanical Ventilator 55 06/19/17 17:00 101/60 06/19/17 17:00 121 20 55 06/19/17 17:00 122 20 90/56 99 Mechanical Ventilator 55 06/19/17 16:55 115 21 100 Mechanical Ventilator 50.0 55 06/19/17 16:54 55 06/19/17 16:54 2.0 50 06/19/17 16:50 114 20 100 Mechanical Ventilator 50.0 55 06/19/17 16:30 106/60 06/19/17 16:27 116 16 117/62 99 Mechanical Ventilator 100 06/19/17 16:15 117/62 06/19/17 16:00 133/70 06/19/17 16:00 111 16 133/70 99 Mechanical Ventilator 100 06/19/17 15:45 114/74 06/19/17 15:40 97.2 110 16 114/74 99 Mechanical Ventilator 100 06/19/17 15:30 55 06/19/17 15:30 72/64 06/19/17 15:30 101 14 94/66 100 Mechanical Ventilator 100 06/19/17 15:28 106 16 100 06/19/17 15:26 64/50 06/19/17 15:19 76/51 06/19/17 15:15 101 14 68/45 100 Mechanical Ventilator 100 06/19/17 15:00 106 14 72/54 100 Mechanical Ventilator 100 06/19/17 14:49 97.6 117 14 83/64 94 Mechanical Ventilator 100 06/19/17 14:15 141 14 94/66 96 Mechanical Ventilator 100 06/19/17 13:53 100 06/19/17 13:40 174 14 Mechanical Ventilator 100 06/19/17 13:40 174 14 100 06/19/17 13:38 100.6 189 34 175/105 Endotracheal Tube 100 06/19/17 13:01 54 12 Ambu-Bag 100 06/19/17 12:54 110 22 148/63 100 Nasal Cannula 2.0 Height (Feet): 5 Height (Inches): 4.00 Weight (Pounds): 120 Laboratory Tests Test 06/19/17 13:10 06/19/17 15:38 06/19/17 16:19 06/19/17 19:45 White Blood Count 4.8 K/UL (4.8-10.8) 9.4 K/UL (4.8-10.8) # Red Blood Count 3.77 M/UL (4.70-6.10) L 3.00 M/UL (4.70-6.10) L Hemoglobin 10.7 G/DL (14.2-18.0) L 9.3 G/DL (14.2-18.0) L Hematocrit 36.1 % (42.0-52.0) L 29.1 % (42.0-52.0) L Mean Corpuscular Volume 96 FL (80-99) 97 FL (80-99) Mean Corpuscular Hemoglobin 28.5 PG (27.0-31.0) 31.1 PG (27.0-31.0) H Mean Corpuscular Hemoglobin Concent 29.7 G/DL (32.0-36.0) L 32.1 G/DL (32.0-36.0) Red Cell Distribution Width 17.0 % (11.6-14.8) H 16.6 % (11.6-14.8) H Platelet Count 147 K/UL (150-450) L 109 K/UL (150-450) L Mean Platelet Volume 7.1 FL (6.5-10.1) 7.5 FL (6.5-10.1) Neutrophils (%) (Auto) 48.3 % (45.0-75.0) 84.1 % (45.0-75.0) H Lymphocytes (%) (Auto) 32.0 % (20.0-45.0) 8.9 % (20.0-45.0) L Monocytes (%) (Auto) 17.5 % (1.0-10.0) H 6.3 % (1.0-10.0) Eosinophils (%) (Auto) 0.4 % (0.0-3.0) 0.0 % (0.0-3.0) Basophils (%) (Auto) 1.8 % (0.0-2.0) 0.7 % (0.0-2.0) Prothrombin Time 11.8 SEC (9.30-11.50) H Prothromb Time International Ratio 1.1 (0.9-1.1) Activated Partial Thromboplast Time 35 SEC (23-33) H Sodium Level 136 mEQ/L (135-145) 141 mEQ/L (135-145) Potassium Level 5.8 mEQ/L (3.4-4.9) H 5.1 mEQ/L (3.4-4.9) H Chloride Level 98 mEQ/L (98-107) 100 mEQ/L (98-107) Carbon Dioxide Level 28 mEQ/L (20-30) 18 mEQ/L (20-30) L Anion Gap 10 (5-15) 23 (5-15) H Blood Urea Nitrogen 18 mg/dL (7-23) 22 mg/dL (7-23) Creatinine 0.7 mg/dL (0.7-1.2) 1.0 mg/dL (0.7-1.2) Estimat Glomerular Filtration Rate mL/min (>60) mL/min (>60) Glucose Level 122 mg/dL (74-106) H 137 mg/dL (74-106) H Lactic Acid Level 3.50 mmol/L (0.66-2.22) H 3.40 mmol/L (0.66-2.22) H 14.20 mmol/L (0.66-2.22) H Uric Acid 6.1 mg/dL (3.0-7.5) Calcium Level 8.9 mg/dL (8.6-10.2) 9.8 mg/dL (8.6-10.2) Total Bilirubin < 0.2 mg/dL (0.0-1.2) 0.7 mg/dL (0.0-1.2) Aspartate Amino Transf (AST/SGOT) 34 U/L (5-40) 728 U/L (5-40) H Alanine Aminotransferase (ALT/SGPT) 30 U/L (3-41) 441 U/L (3-41) H Alkaline Phosphatase 103 U/L (40-129) 236 U/L (40-129) H Total Creatine Kinase 180 U/L (38-174) H 288 U/L (38-174) H Creatine Kinase MB 4.6 ng/mL (< 6.7) Creatine Kinase MB Relative Index 2.5 Troponin I < 0.30 ng/mL (<=0.30) 0.86 ng/mL (<=0.30) *H Total Protein 6.7 g/dL (6.6-8.7) 5.5 g/dL (6.6-8.7) L Albumin 3.2 g/dL (3.5-5.2) L 2.8 g/dL (3.5-5.2) L Globulin 3.5 g/dL 2.7 g/dL Albumin/Globulin Ratio 0.9 (1.0-2.7) L 1.0 (1.0-2.7) Amylase Level 140 U/L (10-110) H Arterial Blood pH 7.182 (7.350-7.450) Arterial Blood Partial Pressure CO2 70.1 mmHg (35.0-45.0) *H Arterial Blood Partial Pressure O2 153.1 mmHg (75.0-100.0) H Arterial Blood HCO3 25.7 mmol/L (22.0-26.0) Arterial Blood Oxygen Saturation 98.1 % (92.0-98.0) H Arterial Blood Base Excess -3.4 Raphael Test Positive Test 06/19/17 20:00 06/20/17 04:00 Arterial Blood pH 7.168 (7.350-7.450) Arterial Blood Partial Pressure CO2 46.3 mmHg (35.0-45.0) H Arterial Blood Partial Pressure O2 423.4 mmHg (75.0-100.0) H Arterial Blood HCO3 16.4 mmol/L (22.0-26.0) L Arterial Blood Oxygen Saturation 99.4 % (92.0-98.0) H Arterial Blood Base Excess -11.6 Raphael Test Positive White Blood Count 14.9 K/UL (4.8-10.8) #H Red Blood Count 3.54 M/UL (4.70-6.10) L Hemoglobin 10.3 G/DL (14.2-18.0) L Hematocrit 33.8 % (42.0-52.0) L Mean Corpuscular Volume 95 FL (80-99) Mean Corpuscular Hemoglobin 29.1 PG (27.0-31.0) Mean Corpuscular Hemoglobin Concent 30.5 G/DL (32.0-36.0) L Red Cell Distribution Width 16.9 % (11.6-14.8) H Platelet Count 142 K/UL (150-450) L Mean Platelet Volume 6.8 FL (6.5-10.1) Neutrophils (%) (Auto) % (45.0-75.0) Lymphocytes (%) (Auto) % (20.0-45.0) Monocytes (%) (Auto) % (1.0-10.0) Eosinophils (%) (Auto) % (0.0-3.0) Basophils (%) (Auto) % (0.0-2.0) Differential Total Cells Counted 100 Neutrophils % (Manual) 79 % (45-75) H Lymphocytes % (Manual) 4 % (20-45) L Monocytes % (Manual) 3 % (1-10) Eosinophils % (Manual) 0 % (0-3) Basophils % (Manual) 0 % (0-2) Band Neutrophils 14 % (0-8) H Platelet Estimate Adequate Platelet Morphology Normal Hypochromasia 1+ Anisocytosis 1+ Erythrocyte Sedimentation Rate 19 MM/HR (0-20) Reticulocyte Count 0.7 % (0.0-2.0) Prothrombin Time 15.8 SEC (9.30-11.50) H Prothromb Time International Ratio 1.5 (0.9-1.1) H Activated Partial Thromboplast Time 33 SEC (23-33) Stool Occult Blood Pending Sodium Level 137 mEQ/L (135-145) Potassium Level 4.9 mEQ/L (3.4-4.9) Chloride Level 97 mEQ/L (98-107) L Carbon Dioxide Level 18 mEQ/L (20-30) L Anion Gap 22 (5-15) H Blood Urea Nitrogen 28 mg/dL (7-23) H Creatinine 1.3 mg/dL (0.7-1.2) H Estimat Glomerular Filtration Rate mL/min (>60) Glucose Level 239 mg/dL (74-106) #H Lactic Acid Level Pending Calcium Level 8.9 mg/dL (8.6-10.2) Phosphorus Level 6.5 mg/dL (2.5-4.8) H Magnesium Level 2.1 mg/dL (1.7-2.5) Iron Level 50 ug/dL (59-158) L Total Iron Binding Capacity 228 ug/dL (250-400) L Percent Iron Saturation 22 % (15-50) Unsaturated Iron Binding 178 ug/dL (112-346) Total Bilirubin 0.8 mg/dL (0.0-1.2) Gamma Glutamyl Transpeptidase Pending Aspartate Amino Transf (AST/SGOT) > 853 U/L (5-40) H Alanine Aminotransferase (ALT/SGPT) > 700 U/L (3-41) H Alkaline Phosphatase 241 U/L (40-129) H Lactate Dehydrogenase 1850 U/L (135-230) H Troponin I 0.66 ng/mL (<=0.30) *H C-Reactive Protein, Quantitative 5.8 mg/dL (< 0.5) H Total Protein 6.1 g/dL (6.6-8.7) L Albumin 2.9 g/dL (3.5-5.2) L Globulin 3.2 g/dL Albumin/Globulin Ratio 0.9 (1.0-2.7) L Carcinoembryonic Antigen 2.3 ng/mL Vitamin B12 Level > 2000 pg/mL (211-946) H Folate Pending Current Medications Medications (Trade) Dose Ordered Sig/Darwin Route PRN Reason Start Time Stop Time Status Last Admin Dose Admin Albuterol/ Ipratropium (DuoNeb 0.5-3(2.5)mg/3ml) 3 ml Q4H PRN HHN Shortness of Breath 06/19/17 14:45 06/24/17 14:44 06/19/17 16:43 Chlorhexidine Gluconate (Britta-Hex 2%) 1 applic BEDTIME TOPIC 06/20/17 21:00 07/20/17 20:59 Dextrose (Dextrose 50%) STAT PRN IV Hypoglycemia 06/19/17 14:45 07/19/17 14:44 Dextrose/Sodium Chloride (D5ns) 1,000 ml @ 100 mls/hr Q10H IV 06/19/17 21:15 07/19/17 21:14 06/20/17 06:57 Heparin Sodium (Porcine) (Heparin 5000 units/ml) 5,000 units EVERY 12 HOURS SUBQ 06/19/17 21:00 07/19/17 20:59 Insulin Aspart EVERY 6 HOURS SUBQ 06/20/17 00:00 07/20/17 00:00 06/20/17 05:36 Lorazepam (Ativan 2mg/ml 1ml) 2 mg Q4H PRN IV For Anxiety 06/19/17 14:45 06/26/17 14:44 06/20/17 09:18 Methylprednisolone Sodium Succinate (Solu-MEDROL) 60 mg EVERY 6 HOURS IV 06/19/17 18:30 07/19/17 18:29 06/20/17 05:36 Morphine Sulfate (Morphine Sulfate) 2 mg Q4H PRN IVP moderate pain 4-6 06/19/17 16:15 06/26/17 14:44 Morphine Sulfate (Morphine Sulfate) 4 mg Q4H PRN IVP For Pain Scale 7-10 06/19/17 14:45 06/26/17 14:44 Nitroglycerin (Ntg) 0.4 mg Q5M X 3 DOSES PRN SL Prn Chest Pain 06/19/17 14:45 07/19/17 14:44 Norepinephrine Bitartrate 8 mg/ Dextrose 508 ml @ 0 mls/hr Q24H IV 06/19/17 21:00 07/19/17 20:59 06/20/17 06:02 Ondansetron HCl 4 mg 4 mg Q6H PRN IVP Nausea & Vomiting 06/19/17 14:45 07/19/17 14:44 Piperacillin Sod/ Tazobactam Sod/ Sodium Chloride (Zosyn/Sodium Chloride) 110 ml @ 27.5 mls/hr EVERY 8 HOURS IVPB 06/19/17 20:00 06/26/17 19:59 06/20/17 05:54 Vancomycin HCl (Vanco rx to dose) 1 ea DAILY PRN MISC Per rx protocol 06/20/17 09:15 07/20/17 09:14 GABINO WEINER Jun 20, 2017 09:22
--- NOTE | 2017-06-20 09:31 | Consultation ---
Consult Note Consult Note Chief Complaint: Altered Level of Consciousness Coded Allergies: IBUPROFEN (Verified Allergy, Unknown, 06/19/17) Hx Hypertension: Yes Hx COPD: Yes Hx Diabetes: Yes Hx Gastrointestinal Problems: Yes - prostate CA, GERD Hx Seizures: Yes Assessment/Plan s/p Code blue 7 times- Septic Shock on Pressors Acute renal failure Acute respiratory failure Plan: [facility]G Dialysis cath Hemodynamic support Gastric support Discussed with ADEEL NASCIMENTO Jun 20, 2017 09:31
[2017-06-20 09:42] LABS: ABG BASE EXCESS -2.3; ABG PCO2 39.2 mmHg (35.0-45.0)
[2017-06-20 09:43] LABS: ABG ALLEN TEST POSITIVE
[2017-06-20 10:02] LABS: OTHERS PATHOLOGIST COMMENT
--- NOTE | 2017-06-20 10:17 | Pulmonolgy Critical Care Note ---
Critical Care - Asmt/Plan Problems: (1) Acute respiratory failure (2) Hyperkalemia (3) Pneumonia (4) Hypoxemic encephalopathy (5) Cardiac arrest Respiratory: monitor respiratory rate, adjust FIO2, CXR Cardiac: continue pressors, continue to monitor HR/BP Renal: F/U I&O, keep IV fluid, check electrolytes Infectious Disease: check cultures, continue antibiotics Gastrointestinal: continue feedings/current rate Endocrine: monitor blood sugar, check TSH, check HgA1C Hematologic: monitor H/H Neurologic: PRN Ativan Affect: PRN ativan Prophylaxis: Protonix, Heparin Disposition: keep in ICU Notes Reviewed: cardio, renal Discussed with: nurses, consultants, 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 - Objective Last 24 Hour Vital Signs Date Time Temp Pulse Resp B/P Pulse Ox O2 Delivery O2 Flow Rate FiO2 06/20/17 08:45 108 20 70 06/20/17 08:00 60 06/20/17 08:00 108 06/20/17 07:00 108 20 104/72 100 Mechanical Ventilator 70 06/20/17 06:57 104/72 06/20/17 06:45 106 20 101/66 100 Mechanical Ventilator 70 06/20/17 06:34 106 20 70 06/20/17 06:30 106 20 98/64 100 Mechanical Ventilator 70 06/20/17 06:15 106 20 98/64 100 Mechanical Ventilator 70 06/20/17 06:02 125/83 06/20/17 06:00 106 20 91/66 100 Mechanical Ventilator 70 06/20/17 05:45 111 20 122/77 100 Mechanical Ventilator 70 06/20/17 05:30 111 20 125/85 100 Mechanical Ventilator 06/20/17 05:15 111 20 70 06/20/17 05:15 112 20 125/85 100 Mechanical Ventilator 70 06/20/17 05:00 110 20 111/76 100 Mechanical Ventilator 70 06/20/17 05:00 111/76 06/20/17 04:30 110 20 112/74 100 Mechanical Ventilator 70 06/20/17 04:00 109 06/20/17 04:00 98.7 109 20 114/74 100 Mechanical Ventilator 70 06/20/17 04:00 114/74 06/20/17 04:00 70 06/20/17 03:30 109 20 98/66 100 Mechanical Ventilator 70 06/20/17 03:20 109 20 70 06/20/17 03:00 102/66 06/20/17 03:00 109 20 102/66 100 Mechanical Ventilator 70 06/20/17 02:30 110 20 105/78 100 Mechanical Ventilator 70 06/20/17 02:00 102/70 06/20/17 02:00 110 20 102/70 100 Mechanical Ventilator 70 06/20/17 01:45 111 20 101/70 100 Mechanical Ventilator 80 06/20/17 01:30 109 20 107/76 100 Mechanical Ventilator 80 06/20/17 01:30 107/76 06/20/17 01:22 107 20 70 06/20/17 01:15 109 20 96/65 100 Mechanical Ventilator 80 06/20/17 01:00 109 20 107/76 100 Mechanical Ventilator 80 06/20/17 01:00 107/76 06/20/17 00:45 109 20 111/78 100 Mechanical Ventilator 80 06/20/17 00:30 109 20 111/78 100 Mechanical Ventilator 80 06/20/17 00:15 109 20 108/75 100 Mechanical Ventilator 80 06/20/17 00:00 109 06/20/17 00:00 114/78 06/20/17 00:00 80 06/20/17 00:00 97.9 109 20 114/78 100 Mechanical Ventilator 80 06/19/17 23:45 110 20 96/67 100 Mechanical Ventilator 80 06/19/17 23:30 109 20 96/67 100 Mechanical Ventilator 80 06/19/17 23:20 104 20 80 06/19/17 23:15 107 20 92/65 100 Mechanical Ventilator 80 06/19/17 23:00 109 20 64/50 100 Mechanical Ventilator 80 06/19/17 23:00 64/50 06/19/17 22:45 109 20 90/65 100 Mechanical Ventilator 100 06/19/17 22:30 109 20 89/71 100 Mechanical Ventilator 100 06/19/17 22:15 110 20 89/58 100 Mechanical Ventilator 100 06/19/17 22:00 89/63 06/19/17 21:57 110 20 85/64 100 Mechanical Ventilator 100 06/19/17 21:45 110 20 95/66 100 Mechanical Ventilator 100 06/19/17 21:30 110 20 95/65 100 Mechanical Ventilator 100 06/19/17 21:15 112 20 95/63 100 Mechanical Ventilator 100 06/19/17 21:05 119/69 06/19/17 21:00 108 20 134/95 100 Mechanical Ventilator 100 06/19/17 20:45 108 20 80/61 100 Mechanical Ventilator 100 06/19/17 20:35 107 20 100 06/19/17 20:30 107 20 84/45 100 Mechanical Ventilator 100 06/19/17 20:15 107 20 90/50 100 Mechanical Ventilator 100 06/19/17 20:00 99 06/19/17 20:00 97.7 108 20 89/58 100 Mechanical Ventilator 100 06/19/17 20:00 100 06/19/17 19:45 98 20 101/64 100 Mechanical Ventilator 100 06/19/17 19:15 79 20 177/94 100 Mechanical Ventilator 100 06/19/17 19:00 63 20 47/29 100 Mechanical Ventilator 100 06/19/17 18:45 71 20 100 06/19/17 18:15 89/63 06/19/17 17:30 122 20 119/69 99 Mechanical Ventilator 55 06/19/17 17:30 122 20 119/69 100 Mechanical Ventilator 55 06/19/17 17:25 122 20 108/71 100 Mechanical Ventilator 55 06/19/17 17:00 101/60 06/19/17 17:00 121 20 55 06/19/17 17:00 122 20 90/56 99 Mechanical Ventilator 55 06/19/17 16:55 115 21 100 Mechanical Ventilator 50.0 55 06/19/17 16:54 55 06/19/17 16:54 2.0 50 06/19/17 16:50 114 20 100 Mechanical Ventilator 50.0 55 06/19/17 16:30 106/60 06/19/17 16:27 116 16 117/62 99 Mechanical Ventilator 100 06/19/17 16:15 117/62 06/19/17 16:00 133/70 06/19/17 16:00 111 16 133/70 99 Mechanical Ventilator 100 06/19/17 15:45 114/74 06/19/17 15:40 97.2 110 16 114/74 99 Mechanical Ventilator 100 06/19/17 15:30 55 06/19/17 15:30 72/64 06/19/17 15:30 101 14 94/66 100 Mechanical Ventilator 100 06/19/17 15:28 106 16 100 06/19/17 15:26 64/50 06/19/17 15:19 76/51 06/19/17 15:15 101 14 68/45 100 Mechanical Ventilator 100 06/19/17 15:00 106 14 72/54 100 Mechanical Ventilator 100 06/19/17 14:49 97.6 117 14 83/64 94 Mechanical Ventilator 100 06/19/17 14:15 141 14 94/66 96 Mechanical Ventilator 100 06/19/17 13:53 100 06/19/17 13:40 174 14 Mechanical Ventilator 06/19/17 13:40 174 14 100 06/19/17 13:38 100.6 189 34 175/105 Endotracheal Tube 100 06/19/17 13:01 54 12 Ambu-Bag 100 06/19/17 12:54 110 22 148/63 100 Nasal Cannula 2.0 Status: awake Condition: critical HEENT: atraumatic Lungs: clear Heart: HR/BP stable Abdomen: soft, active bowel sounds, feeding tube Extremities: no C/C/E, edema Accucheck: 217 Critical Care - Subjective ICU Day: 2 Intubation Day: 2 Interval Events: 72 year old male with advanced emphysema ( based on CXR ) jail resident , brought in by paramedics yesterday for ALOC. He arrested a total of 7 times last time and each time he responded to resuscitation. He is orally intubated, on levophed drip 13 ug/min. FI02: 70 Vent Support Breath Rate: 20 Vent Support Mode: AC Vent Tidal Volume: 600 Sputum Amount: Small PEEP: 0.0 PIP: 50 Fluids: d5 NS 100 cc/hour I&O: Intake and Output 06/19/17 06/20/17 19:00 07:00 Intake Total 1200 ml 2191.25 ml Output Total 500 ml Balance 1200 ml 1691.25 ml Intake IV Total 1200 ml 2191.25 ml Output Urine Total 500 ml # Voids 1 1 # Bowel Movements 2 CXR: ET in good position, hyperinflated. ET-Tube: 7.5 ET Position: 25 Labs: Laboratory Tests Test 06/19/17 13:10 06/19/17 15:38 06/19/17 16:19 06/19/17 19:45 White Blood Count 4.8 K/UL (4.8-10.8) 9.4 K/UL (4.8-10.8) # Red Blood Count 3.77 M/UL (4.70-6.10) L 3.00 M/UL (4.70-6.10) L Hemoglobin 10.7 G/DL (14.2-18.0) L 9.3 G/DL (14.2-18.0) L Hematocrit 36.1 % (42.0-52.0) L 29.1 % (42.0-52.0) L Mean Corpuscular Volume 96 FL (80-99) 97 FL (80-99) Mean Corpuscular Hemoglobin 28.5 PG (27.0-31.0) 31.1 PG (27.0-31.0) H Mean Corpuscular Hemoglobin Concent 29.7 G/DL (32.0-36.0) L 32.1 G/DL (32.0-36.0) Red Cell Distribution Width 17.0 % (11.6-14.8) H 16.6 % (11.6-14.8) H Platelet Count 147 K/UL (150-450) L 109 K/UL (150-450) L Mean Platelet Volume 7.1 FL (6.5-10.1) 7.5 FL (6.5-10.1) Neutrophils (%) (Auto) 48.3 % (45.0-75.0) 84.1 % (45.0-75.0) H Lymphocytes (%) (Auto) 32.0 % (20.0-45.0) 8.9 % (20.0-45.0) L Monocytes (%) (Auto) 17.5 % (1.0-10.0) H 6.3 % (1.0-10.0) Eosinophils (%) (Auto) 0.4 % (0.0-3.0) 0.0 % (0.0-3.0) Basophils (%) (Auto) 1.8 % (0.0-2.0) 0.7 % (0.0-2.0) Prothrombin Time 11.8 SEC (9.30-11.50) H Prothromb Time International Ratio 1.1 (0.9-1.1) Activated Partial Thromboplast Time 35 SEC (23-33) H Sodium Level 136 mEQ/L (135-145) 141 mEQ/L (135-145) Potassium Level 5.8 mEQ/L (3.4-4.9) H 5.1 mEQ/L (3.4-4.9) H Chloride Level 98 mEQ/L (98-107) 100 mEQ/L (98-107) Carbon Dioxide Level 28 mEQ/L (20-30) 18 mEQ/L (20-30) L Anion Gap 10 (5-15) 23 (5-15) H Blood Urea Nitrogen 18 mg/dL (7-23) 22 mg/dL (7-23) Creatinine 0.7 mg/dL (0.7-1.2) 1.0 mg/dL (0.7-1.2) Estimat Glomerular Filtration Rate mL/min (>60) mL/min (>60) Glucose Level 122 mg/dL (74-106) H 137 mg/dL (74-106) H Lactic Acid Level 3.50 mmol/L (0.66-2.22) H 3.40 mmol/L (0.66-2.22) H 14.20 mmol/L (0.66-2.22) H Uric Acid 6.1 mg/dL (3.0-7.5) Calcium Level 8.9 mg/dL (8.6-10.2) 9.8 mg/dL (8.6-10.2) Total Bilirubin < 0.2 mg/dL (0.0-1.2) 0.7 mg/dL (0.0-1.2) Aspartate Amino Transf (AST/SGOT) 34 U/L (5-40) 728 U/L (5-40) H Alanine Aminotransferase (ALT/SGPT) 30 U/L (3-41) 441 U/L (3-41) H Alkaline Phosphatase 103 U/L (40-129) 236 U/L (40-129) H Total Creatine Kinase 180 U/L (38-174) H 288 U/L (38-174) H Creatine Kinase MB 4.6 ng/mL (< 6.7) Creatine Kinase MB Relative Index 2.5 Troponin I < 0.30 ng/mL (<=0.30) 0.86 ng/mL (<=0.30) *H Total Protein 6.7 g/dL (6.6-8.7) 5.5 g/dL (6.6-8.7) L Albumin 3.2 g/dL (3.5-5.2) L 2.8 g/dL (3.5-5.2) L Globulin 3.5 g/dL 2.7 g/dL Albumin/Globulin Ratio 0.9 (1.0-2.7) L 1.0 (1.0-2.7) Amylase Level 140 U/L (10-110) H Arterial Blood pH 7.182 (7.350-7.450) Arterial Blood Partial Pressure CO2 70.1 mmHg (35.0-45.0) *H Arterial Blood Partial Pressure O2 153.1 mmHg (75.0-100.0) H Arterial Blood HCO3 25.7 mmol/L (22.0-26.0) Arterial Blood Oxygen Saturation 98.1 % (92.0-98.0) H Arterial Blood Base Excess -3.4 Raphael Test Positive Test 06/19/17 20:00 06/20/17 04:00 06/20/17 09:34 Arterial Blood pH 7.168 (7.350-7.450) 7.378 (7.350-7.450) Arterial Blood Partial Pressure CO2 46.3 mmHg (35.0-45.0) H 39.2 mmHg (35.0-45.0) Arterial Blood Partial Pressure O2 423.4 mmHg (75.0-100.0) H 313.1 mmHg (75.0-100.0) H Arterial Blood HCO3 16.4 mmol/L (22.0-26.0) L 22.6 mmol/L (22.0-26.0) Arterial Blood Oxygen Saturation 99.4 % (92.0-98.0) H 99.3 % (92.0-98.0) H Arterial Blood Base Excess -11.6 -2.3 Raphael Test Positive Positive White Blood Count 14.9 K/UL (4.8-10.8) #H Red Blood Count 3.54 M/UL (4.70-6.10) L Hemoglobin 10.3 G/DL (14.2-18.0) L Hematocrit 33.8 % (42.0-52.0) L Mean Corpuscular Volume 95 FL (80-99) Mean Corpuscular Hemoglobin 29.1 PG (27.0-31.0) Mean Corpuscular Hemoglobin Concent 30.5 G/DL (32.0-36.0) L Red Cell Distribution Width 16.9 % (11.6-14.8) H Platelet Count 142 K/UL (150-450) L Mean Platelet Volume 6.8 FL (6.5-10.1) Neutrophils (%) (Auto) % (45.0-75.0) Lymphocytes (%) (Auto) % (20.0-45.0) Monocytes (%) (Auto) % (1.0-10.0) Eosinophils (%) (Auto) % (0.0-3.0) Basophils (%) (Auto) % (0.0-2.0) Differential Total Cells Counted 100 Neutrophils % (Manual) 79 % (45-75) H Lymphocytes % (Manual) 4 % (20-45) L Monocytes % (Manual) 3 % (1-10) Eosinophils % (Manual) 0 % (0-3) Basophils % (Manual) 0 % (0-2) Band Neutrophils 14 % (0-8) H Other Cell Type Pathologist comment Platelet Estimate Adequate Platelet Morphology Normal Hypochromasia 1+ Anisocytosis 1+ Erythrocyte Sedimentation Rate 19 MM/HR (0-20) Reticulocyte Count 0.7 % (0.0-2.0) Prothrombin Time 15.8 SEC (9.30-11.50) H Prothromb Time International Ratio 1.5 (0.9-1.1) H Activated Partial Thromboplast Time 33 SEC (23-33) Stool Occult Blood Pending Sodium Level 137 mEQ/L (135-145) Potassium Level 4.9 mEQ/L (3.4-4.9) Chloride Level 97 mEQ/L (98-107) L Carbon Dioxide Level 18 mEQ/L (20-30) L Anion Gap 22 (5-15) H Blood Urea Nitrogen 28 mg/dL (7-23) H Creatinine 1.3 mg/dL (0.7-1.2) H Estimat Glomerular Filtration Rate mL/min (>60) Glucose Level 239 mg/dL (74-106) #H Lactic Acid Level Pending Calcium Level 8.9 mg/dL (8.6-10.2) Phosphorus Level 6.5 mg/dL (2.5-4.8) H Magnesium Level 2.1 mg/dL (1.7-2.5) Iron Level 50 ug/dL (59-158) L Total Iron Binding Capacity 228 ug/dL (250-400) L Percent Iron Saturation 22 % (15-50) Unsaturated Iron Binding 178 ug/dL (112-346) Total Bilirubin 0.8 mg/dL (0.0-1.2) Gamma Glutamyl Transpeptidase 126 U/L (8-61) H Aspartate Amino Transf (AST/SGOT) > 853 U/L (5-40) H Alanine Aminotransferase (ALT/SGPT) > 700 U/L (3-41) H Alkaline Phosphatase 241 U/L (40-129) H Lactate Dehydrogenase 1850 U/L (135-230) H Troponin I 0.66 ng/mL (<=0.30) *H C-Reactive Protein, Quantitative 5.8 mg/dL (< 0.5) H Total Protein 6.1 g/dL (6.6-8.7) L Albumin 2.9 g/dL (3.5-5.2) L Globulin 3.2 g/dL Albumin/Globulin Ratio 0.9 (1.0-2.7) L Carcinoembryonic Antigen 2.3 ng/mL Vitamin B12 Level > 2000 pg/mL (211-946) H Folate Pending IVONNE BURLESON Jun 20, 2017 10:17
[2017-06-20 10:42] LABS: URIC ACID 9.1 mg/dL (3.0-7.5)
[2017-06-20] MEDS ORDERED: NS 275ml ONE (10:47)
[2017-06-20] MEDS ORDERED: D5NS 1000ml IV ONE (10:47)
[2017-06-20] MEDS: Famotidine 20 MG/ 2ML VIAL IVP SCH ×2 (11:01→20:55)
--- NOTE | 2017-06-20 11:40 | Diagnostic Imaging Report ---
Indication: Dyspnea Comparison: 06/19/17 A single view chest radiograph was obtained. Findings: Tubes and lines are stable. Lungs are hyperexpanded. There is a small right basilar pneumothorax now demonstrated. There is suspicion of at least 2 rib fractures on the right. Heart size is stable. Impression: Development of right pneumothorax. Probable rib fractures on the right side not evaluated well on the current study. COPD. Tubes and lines stable Findings were conveyed to the ICU nurse at 11:30 AM, 06/20/17
[2017-06-20] MEDS ORDERED: Vancomycin 1gm/D5W 275ml IVPB ONE ×2 (12:00)
[2017-06-20] MEDS ORDERED: Lidocaine 1% Plain 30 ml INJ SCH (13:00)
[2017-06-20] MEDS ORDERED: Heparin 2000 units/Ns 1000ml INJ SCH (13:00)
[2017-06-20 13:13] LABS: APPEARANCE,URINE CLOUDY; KETONES,URINE 1+ (NEGATIVE); LEUKOCYTE ESTERASE ,URINE 1+ (NEGATIVE); NITRITE,URINE NEGATIVE (NEGATIVE); PH,URINE 5 (4.5-8.0); PROTEIN,URINE 3+ (NEGATIVE); UROBILINOGEN,URINE NORMAL MG/DL (0.0-1.0)
[2017-06-20 13:23] LABS: BACTERIA,URINE MANY /HPF; RBC,URINE 40-60 /HPF (0 - 0); SQUAMOUS EPITHELIAL CELL,UR OCCASIONAL /LPF (NONE/OCC)
[2017-06-20 13:24] LABS: AMORPHOUS SEDIMENT,UR FEW /LPF
--- NOTE | 2017-06-20 13:32 | History & Physical ---
History and Physical History & Physicial Jeff Hamm MD Jun 20, 2017 13:32
--- NOTE | 2017-06-20 13:45 | Consultation ---
DATE OF CONSULTATION: 06/20/2017 INFECTIOUS DISEASES CONSULTATION This consult is for coverage of Dr. Serna. PRIMARY ATTENDING PHYSICIAN: Jeff Hamm M.D. REASON FOR CONSULT: Sepsis, septic shock, and pneumonia. HISTORY OF PRESENT ILLNESS: This is a 72-year-old male, who is a jail resident, was admitted yesterday because of fever and altered mental status. The patient had a temperature of 101 and shortness of breath. It was found the patient had hypercapnic respiratory failure. He was intubated. He had four episodes of cardiopulmonary arrest, which causes electrical activity, currently in the ICU and noncommunicative. PAST MEDICAL HISTORY: Positive for hypertension, diabetes mellitus, cancer, seizure disorder, and encephalopathy. ALLERGIES: Allergic to ibuprofen. MEDICATIONS: Getting his insulin, heparin, norepinephrine, Zosyn, methylprednisolone, morphine, nitroglycerin, Zofran, lorazepam, and DuoNeb inhaler. SOCIAL HISTORY: custodial resident. No other history obtainable. PHYSICAL EXAMINATION: VITAL SIGNS: Temperature is 98.7, T-max in hospital is 100.6, pulse 108, and blood pressure 104/72. GENERAL APPEARANCE: Shaking, may have seizure activity, nonresponsive. HEAD AND NECK: Orally intubated. HEART: Tachycardic. LUNGS: The patient on mechanical ventilator. Clear. ABDOMEN: Soft, nontender, and flat. EXTREMITIES: No edema. GENITOURINARY: He has condom catheter. LINES: The patient has right subclavian line that was placed in the hospital. LABORATORY AND DIAGNOSTIC DATA: WBC today is 14.9, hemoglobin 10.3, hematocrit 33.8, and platelets 142,000. Troponin was elevated, the highest one is 0.86. AST is 853, ALT 700, and alkaline phosphatase is 241. LDH is 1850. Sodium 137, potassium 4.9, chloride 97, bicarb 18, BUN 28, creatinine 1.3, and glucose is 239 . Chest x-ray shows bilateral infiltrates. IMPRESSION: 1. Sepsis, septic shock. The patient is on Levophed. 2. Pneumonia. 3. Cardiopulmonary arrest, pulseless electrical activity. 4. Hypercapnic respiratory failure. 5. Diabetes mellitus. 6. Acute renal failure, does not make any urine today. 7. Anemia. 8. History of cancer. 9. Elevated transaminase and alkaline phosphatase may be secondary to shock liver. RECOMMENDATION: We will continue with Zosyn. We will add IV vancomycin to the dose by his pharmacy. We will ask for abdominal ultrasound. We will follow up the patient's cultures. At the end of my exam, I thank Dr. Hamm for involving me in the care of this patient. Raghav Munguia M.D. DR: GLORIA JOB#: [id number] CC:
--- NOTE | 2017-06-20 16:50 | Diagnostic Imaging Report ---
Indication: Patient requires hemodialysis. Findings: After the indications, procedure, risks, complications, and alternatives of the procedure were explained, written informed consent was obtained. The neck was prepped with alcohol. All elements of maximal sterile barrier technique were followed including usage of a cap, mask, sterile gown, sterile gloves, hand hygiene and a large sterile sheet. 1% lidocaine was used to anesthetize the skin. Sonographic evaluation was performed demonstrating a patent and compressible right femoral vein. Access was obtained under real-time ultrasound guidance using an 18 gauge needle and a digital image was saved in archive. An 0.035 wire was then advanced into the vein. Needle exchanged for a dilator. A temporary hemodialysis catheter was then advanced over the wire. Wire was removed. Catheter was secured to the skin using 2-0 Prolene suture. Both ports aspirate and flush easily. The procedure was performed at the bedside. Final position of the catheter shows the tip is in the upper part of the IVC on the KUB film obtained after the procedure. Impression: Successful placement of right femoral hemodialysis catheter.
[2017-06-20] MEDS ORDERED: Dyna-Hex 2% Top Sol 8oz TOPIC SCH (21:00)
--- NOTE | 2017-06-20 21:30 | History and Physical Report ---
DATE OF ADMISSION: 06/19/2017 CHIEF COMPLAINT: Altered mental status. HISTORY OF PRESENT ILLNESS: This is a 72-year-old gentleman with past medical history significant for seizure disorder, urinary tract infection, chronic obstructive pulmonary disease, hypertension, prostate cancer, glaucoma, gastroesophageal reflux disease, dyslipidemia, abnormal posture with a dysphagia, sepsis, pneumonia, respiratory failure, cognitive dysfunction, diabetes type 2, encephalopathy, and fracture of the thoracic bone, who has presented to the hospital from [facility] after he was noted to be altered mental status. The patient shortly after initial evaluation in the emergency room was admitted to intensive care unit due to the hypoxemia and the patient throughout the hospital was noted to be in respiratory distress and intubated. The patient underwent cardiac pulmonary arrest multiple times, total of seven times overnight and subsequently, the patient was admitted to the hospital to intensive care unit due to the acute respiratory failure, most likely secondary to the pneumonia with septic shock, acute kidney injury, and hyperkalemia. PAST MEDICAL HISTORY/PAST SURGICAL HISTORY: As above. History of a seizure disorder, urinary tract infection, chronic obstructive pulmonary disease, hypertension, prostate cancer, glaucoma, gastroesophageal reflux disease, dyslipidemia, abnormal posture, dysphagia, sepsis, pneumonia, respiratory failure, cognitive dysfunction, diabetes type 2, history of encephalopathy, and fracture of the thoracic bone. MEDICATIONS: Medications at the nursing facility significant for Tylenol, vitamin D, Advair Diskus, albuterol, calcium, Atrovent, lisinopril, hydrochlorothiazide, multivitamins, omeprazole, and MiraLAX. Please see medication reconciliation. ALLERGIES: To ibuprofen. SOCIAL HISTORY: A [facility] resident. No smoking, alcohol or drugs at this time. History is very limited secondary to the patient's status intubated. No family history. Most of the history is taken from the ER chart as well as the [facility] documentation. FAMILY HISTORY: Noncontributory. REVIEW OF SYSTEMS: Very limited except altered mental status at the nursing facility. No fever or chills was reported. PHYSICAL EXAMINATION: VITAL SIGNS: Upon arrival to the ER, temperature 97.6, pulse of 110, respirations 22, and blood pressure 148/63. The patient was on nasal cannula, was noted to be stupor and not responsive with severe distress. HEENT: Pupils are equal, sluggish, and responsive. ET tube in the mouth. NG tube in the nose. NECK: Supple. No JVD. LUNGS: Good air entry and coarse breath sounds. Mechanical breath sounds. HEART: S1 and S2. Tachycardia. No murmurs or gallops. ABDOMEN: Soft, nondistended, and nontender. Midline surgical scar was noted from the umbilical area to the suprapubic area. GENITALIA: Aguilera catheter was noted. EXTREMITIES: No cyanosis, clubbing, or edema. NEUROLOGIC: Very limited secondary to the patient's status. At this time, unresponsive. Cannot follow commands and is not able to move extremities. LABORATORY DATA: On admission significant for sodium 136, potassium 5.8, chloride 98, bicarbonate 28, BUN 18, creatinine 0.7, and glucose is 122. The patient's AST was 34, ALT of 30, repeat one is 728 and 441, and alkaline phosphatase is 236. Albumin is 3.2. Amylase is 140. PT of 11, INR 1.1, and PTT of 35. ABG, pH of 7.182, pCO2 of 70, pO2 of 153, and saturating 98%. Stool for occult blood is negative. The patient's chest x-ray, it is a limited evaluation, bilateral infiltrates. ET tube in the good position. Repeat chest x-rays to the level of the right pneumothorax, probably rib fracture on the right side, not evaluated well and chronic obstructive pulmonary disease. ASSESSMENT: 1. Acute respiratory failure. 2. Hyperkalemia. 3. Pneumonia. 4. Hypoxemic encephalopathy. 5. Status post cardiopulmonary arrest. 6. Liver shock. 7. Acute kidney failure on chronic kidney disease. 8. Septic shock. 9. Right pneumothorax. PLAN: Admit the patient to intensive care unit. The patient is intubated. At this time, the patient's Code Status is Full Code. The patient overnight had multiple cardiac arrest, a total of six to seven times correction and we will follow up with the Pulmonary Critical Care consultation with Dr. Nevarez, Dr. Raghav Munguia from Infectious Disease, Dr. Nehemias Macario from Cardiology, Dr. Bennett Grey, from Nephrology. We will follow up with cultures and monitor laboratory including ABG and follow up with a repeat chest x-ray. Broad-spectrum antibiotic to vancomycin and Zosyn and nebulizer treatment, Solu-Medrol 60 mg IV q.6. and follow up with repeat ABG. Jeff Hamm M.D. DR: GERALD JOB#: [id number] CC:
[2017-06-20 23:00] LABS: REFLEX LACTIC ACID YES OR NO YES
[2017-06-21] VITALS (31 sets, daily range): BP systolic 81–200; BP diastolic 56–109
[2017-06-21] MEDS: Solu-MEDROL 125mg Inj IV SCH ×3 (00:24→11:50)
[2017-06-21] MEDS: NovoLOG Insulin Flexpen SUBQ SCH ×3 (00:27→11:54)
--- NOTE | 2017-06-21 02:14 | Emergency Room Report ---
History of Present Illness General Chief Complaint: Altered Level of Consciousness Source: Medical Record Present Illness Allergies: Coded Allergies: IBUPROFEN (Verified Allergy, Unknown, 06/19/17) Nursing Documentation-[facility] Past Medical History: No History, Except For Hx Cardiac Problems: Yes Hx Hypertension: Yes Hx COPD: Yes Hx Diabetes: Yes Hx Cancer: Yes Hx Gastrointestinal Problems: Yes Hx Neurological Problems: Yes Hx Seizures: Yes Hx Dysphasia: Yes Physical Exam Vital Signs Date Time Temp Pulse Resp B/P Pulse Ox O2 Delivery O2 Flow Rate FiO2 06/19/17 12:54 110 22 148/63 100 Nasal Cannula 2.0 06/19/17 13:01 100 06/19/17 13:38 100.6 Medical Decision Making Diagnostic Impression: Primary Impression: Acute respiratory failure Additional Impressions: Pneumonia Hyperkalemia Cardiac arrest ER Course This is unfortunate 72-year-old male who is admitted for respiratory failure was intubated. He also has hyperkalemia and had dialysis. He coded several times in the ER and the ICU also. I was called to the last code. He became asystolic and CPR was in progress on my arrival. Patient received 1 dose of epinephrine already. He was pulse with CPR. No pulse without it. He received a second dose of epinephrine. After this he did have spontaneous pulse. The os was strong. A code was then called and patient continue his current medical regimen. Last Vital Signs Date Time Temp Pulse Resp B/P Pulse Ox O2 Delivery O2 Flow Rate FiO2 06/21/17 01:30 107 41 90/63 100 Mechanical Ventilator 80 06/21/17 00:00 98.9 06/19/17 16:55 50.0 Disposition: ADMITTED INPATIENT Condition: Critical Referrals: BISI KENDRICK (PCP) MAREK PARTIDA M.D. Jun 21, 2017 02:14
[2017-06-21] MEDS: D5NS 1,000 ML IV SCH (04:01)
[2017-06-21 04:24] LABS: MEAN CORPUSCULAR HEMOGLOBIN 29.7 PG (27.0-31.0); MEAN CORPUSCULAR HGB CONC 31.4 G/DL (32.0-36.0); MEAN CORPUSCULAR VOLUME 94 FL (80-99); MEAN PLATELET VOLUME 8.8 FL (6.5-10.1); PLATELET COUNT 105 K/UL (150-450); RED BLOOD COUNT 3.08 M/UL (4.70-6.10); RED CELL DISTRIBUTION WIDTH 16.6 % (11.6-14.8); WHITE BLOOD COUNT 12.7 K/UL (4.8-10.8)
[2017-06-21 04:35] LABS: CRP QUANT 8.1 mg/dL (< 0.5); PHOSPHORUS 7.6 mg/dL (2.5-4.8); URIC ACID 10.4 mg/dL (3.0-7.5)
[2017-06-21 04:40] LABS: ALBUMIN/GLOBULIN RATIO 0.9 (1.0-2.7); ANION GAP 16 (5-15); CALCIUM 7.7 mg/dL (8.6-10.2); CARBON DIOXIDE 19 mEQ/L (20-30); CHLORIDE 97 mEQ/L (98-107); CREATININE 2.7 mg/dL (0.7-1.2); HEMOLYSIS 22; POTASSIUM 5.6 mEQ/L (3.4-4.9); SODIUM 132 mEQ/L (135-145); TOTAL PROTEIN 6.3 g/dL (6.6-8.7)
[2017-06-21 04:44] LABS: REFLEX LACTIC ACID YES OR NO YES
[2017-06-21 04:46] LABS: TROPONIN I 0.57 ng/mL (<=0.30)
[2017-06-21 05:22] LABS: ALANINE AMINOTRANSFERASE 3232 U/L (3-41); ASPARTATE AMINO TRANSFERASE 4992 U/L (5-40)
[2017-06-21] MEDS: Piperacillin/Tazobactam 3.375 GM in NS 110 ML IVPB SCH ×2 (05:46→13:44)
[2017-06-21 08:21] LABS: ABG PCO2 45.5 mmHg (35.0-45.0)
[2017-06-21 08:22] LABS: ABG ALLEN TEST POSITIVE; ABG BASE EXCESS -7.2
[2017-06-21] MEDS: Heparin 5000 units/ml inj SUBQ SCH (09:00)
[2017-06-21] MEDS: Famotidine 20 MG/ 2ML VIAL IVP SCH (09:16)
[2017-06-21] MEDS ORDERED: Calcium Gluconate 1gm/10ml vial IVP ONE (09:19)
--- NOTE | 2017-06-21 09:24 | Pulmonolgy Critical Care Note ---
Critical Care - Asmt/Plan Problems: (1) Acute respiratory failure (2) Hyperkalemia (3) Pneumonia (4) Hypoxemic encephalopathy (5) Cardiac arrest Respiratory: monitor respiratory rate, adjust FIO2 Cardiac: continue to monitor HR/BP Renal: F/U I&O, keep IV fluid Infectious Disease: check cultures Gastrointestinal: continue feedings/current rate Endocrine: monitor blood sugar, check TSH, continue sliding scale insulin Hematologic: monitor H/H, transfuse if hgb<8.5 Neurologic: PRN Ativan, PRN Morphine, keep patient comfortable Affect: PRN ativan Time Spent (Minutes): 40 Notes Reviewed: cardio, renal Discussed with: nurses, consultants, lead case managerstudy manager - Objective Last 24 Hour Vital Signs Date Time Temp Pulse Resp B/P Pulse Ox O2 Delivery O2 Flow Rate FiO2 06/21/17 08:30 106 20 110/85 100 Mechanical Ventilator 50 06/21/17 08:00 108 06/21/17 08:00 50 06/21/17 08:00 107 20 113/75 100 Mechanical Ventilator 50 06/21/17 07:45 106 20 102/79 100 Mechanical Ventilator 50 06/21/17 07:30 109 20 126/93 100 Mechanical Ventilator 50 06/21/17 07:15 108 20 172/97 100 Mechanical Ventilator 50 06/21/17 07:00 99.1 112 20 153/94 100 Mechanical Ventilator 50 06/21/17 07:00 109 20 50 06/21/17 07:00 154/97 06/21/17 06:37 65/47 06/21/17 06:30 111 21 200/109 100 Mechanical Ventilator 60 06/21/17 06:00 111 20 132/87 100 Mechanical Ventilator 60 06/21/17 06:00 132/87 06/21/17 05:30 111 20 126/88 100 Mechanical Ventilator 60 06/21/17 05:16 111 20 60 06/21/17 05:00 114/76 06/21/17 05:00 110 20 114/76 100 Mechanical Ventilator 60 06/21/17 04:30 113 26 114/81 100 Mechanical Ventilator 60 06/21/17 04:00 60 06/21/17 04:00 99.4 113 30 114/87 100 Mechanical Ventilator 80 06/21/17 04:00 114/87 06/21/17 04:00 110 06/21/17 03:30 112 37 125/71 100 Mechanical Ventilator 80 06/21/17 03:15 104 20 60 06/21/17 03:00 121/87 06/21/17 03:00 112 42 121/87 100 Mechanical Ventilator 80 06/21/17 02:30 112 36 114/88 100 Mechanical Ventilator 80 06/21/17 02:00 106 31 81/60 100 Mechanical Ventilator 80 06/21/17 02:00 81/60 06/21/17 01:30 107 41 90/63 100 Mechanical Ventilator 80 06/21/17 01:00 122/78 06/21/17 01:00 113 35 122/78 100 Mechanical Ventilator 80 06/21/17 00:55 113 20 80 06/21/17 00:30 112 35 127/84 100 Mechanical Ventilator 80 06/21/17 00:00 98.9 111 38 109/80 100 Mechanical Ventilator 80 06/21/17 00:00 109/80 06/21/17 00:00 111 06/21/17 00:00 80 06/20/17 23:30 103 35 80/58 100 Mechanical Ventilator 80 06/20/17 23:29 89/64 06/20/17 23:00 123/80 06/20/17 23:00 108 20 123/80 100 Mechanical Ventilator 100 06/20/17 22:40 98 20 100 06/20/17 22:30 60 13 170/93 100 Mechanical Ventilator 100 06/20/17 22:00 103 23 93/72 100 Mechanical Ventilator 60 06/20/17 22:00 93/72 06/20/17 21:30 105 20 91/66 100 Mechanical Ventilator 60 06/20/17 21:10 106 20 50 06/20/17 21:00 105 18 106/67 100 Mechanical Ventilator 60 06/20/17 21:00 106/67 06/20/17 20:30 105 23 99/65 100 Mechanical Ventilator 60 06/20/17 20:00 102 06/20/17 20:00 96/60 06/20/17 20:00 102 20 96/60 100 Mechanical Ventilator 60 06/20/17 20:00 60 06/20/17 19:30 98.9 94 14 72/47 100 Mechanical Ventilator 60 06/20/17 19:15 97 20 50 06/20/17 19:00 104 18 177/98 100 Mechanical Ventilator 60 06/20/17 18:30 106 16 154/80 100 Mechanical Ventilator 60 06/20/17 18:00 105 20 145/95 100 Mechanical Ventilator 60 06/20/17 17:30 106 15 165/95 98 Mechanical Ventilator 60 06/20/17 17:10 140/88 06/20/17 17:00 107 16 140/88 98 Mechanical Ventilator 60 06/20/17 17:00 50 06/20/17 16:44 107 20 50 06/20/17 16:30 106 20 144/62 98 Mechanical Ventilator 60 06/20/17 16:00 99.5 108 24 106/68 98 Mechanical Ventilator 60 06/20/17 16:00 109 06/20/17 16:00 60 06/20/17 15:30 110 22 171/91 98 Mechanical Ventilator 60 06/20/17 15:00 111 22 156/96 98 Mechanical Ventilator 60 06/20/17 14:48 112 20 60 06/20/17 14:30 114 22 133/95 98 Mechanical Ventilator 60 06/20/17 14:00 115 20 134/93 98 Mechanical Ventilator 60 06/20/17 13:30 117 20 112/83 98 Mechanical Ventilator 60 06/20/17 13:00 115 22 105/75 100 Mechanical Ventilator 60 06/20/17 12:31 118 20 60 06/20/17 12:30 99.7 119 23 92/77 100 Mechanical Ventilator 60 06/20/17 12:00 119 24 105/75 100 Mechanical Ventilator 60 06/20/17 12:00 119 06/20/17 11:45 118 25 93/77 100 Mechanical Ventilator 60 06/20/17 11:30 118 30 112/73 100 Mechanical Ventilator 60 06/20/17 11:15 114 25 88/64 100 Mechanical Ventilator 60 06/20/17 11:00 115 26 122/80 100 Mechanical Ventilator 60 06/20/17 10:45 114 20 113/95 100 Mechanical Ventilator 60 06/20/17 10:31 117 20 60 06/20/17 10:30 114 20 86/60 100 Mechanical Ventilator 60 06/20/17 10:15 113 20 87/52 100 Mechanical Ventilator 60 06/20/17 10:00 111 20 80/60 100 Mechanical Ventilator 60 06/20/17 09:45 60 06/20/17 09:45 111 20 92/66 100 Mechanical Ventilator 70 06/20/17 09:30 112 20 113/70 100 Mechanical Ventilator 70 06/20/17 09:15 110 20 95/74 100 Mechanical Ventilator 70 Status: obtunded Condition: critical HEENT: atraumatic Lungs: clear Heart: HR/BP stable, HR/BP unstable Abdomen: soft, non-tender, feeding tube Extremities: no C/C/E, edema Decubiti: location Micro: Microbiology Date/Time Source Procedure Growth Status 06/19/17 13:20 Blood Blood Culture - Preliminary NO GROWTH AFTER 24 HOURS Resulted 06/19/17 13:20 Blood Blood Culture - Preliminary NO GROWTH AFTER 24 HOURS Resulted 06/20/17 11:00 Urine,Clean Catch Urine Culture - Preliminary NO GROWTH Resulted Accucheck: 138 Critical Care - Subjective ROS Limited/Unobtainable: Yes ICU Day: 3 Intubation Day: 3 Condition: critical EKG Rhythm: Sinus Rhythm FI02: 50 Vent Support Breath Rate: 20 Vent Support Mode: AC Vent Tidal Volume: 600 Sputum Amount: Scant PEEP: 0.0 PIP: 43 Fluids: ns 100 cc.hour I&O: Intake and Output 06/20/17 06/21/17 19:00 07:00 Intake Total 1691.0 ml 2388.7 ml Output Total 10 ml 95 ml Balance 1681.0 ml 2293.7 ml Intake Oral 0 ml IV Total 1691.0 ml 2088.7 ml Blood Product 300 ml Output Urine Total 10 ml 95 ml CXR: no change, had another cardiac arrest last night. so far total of 8 code blues ET-Tube: 7.5 ET Position: 25 Labs: Laboratory Tests Test 06/20/17 09:34 06/20/17 10:05 06/20/17 11:00 06/20/17 22:15 Arterial Blood pH 7.378 (7.350-7.450) Arterial Blood Partial Pressure CO2 39.2 mmHg (35.0-45.0) Arterial Blood Partial Pressure O2 313.1 mmHg (75.0-100.0) H Arterial Blood HCO3 22.6 mmol/L (22.0-26.0) Arterial Blood Oxygen Saturation 99.3 % (92.0-98.0) H Arterial Blood Base Excess -2.3 Raphael Test Positive Lactic Acid Level 5.60 mmol/L (0.66-2.22) H 4.30 mmol/L (0.66-2.22) H Urine Color Yellow Urine Appearance Cloudy Urine pH 5 (4.5-8.0) Urine Specific Simon 1.020 (1.005-1.035) Urine Protein 3+ (NEGATIVE) H Urine Glucose (UA) 1+ (NEGATIVE) H Urine Ketones 1+ (NEGATIVE) H Urine Occult Blood 5+ (NEGATIVE) H Urine Nitrite Negative (NEGATIVE) Urine Bilirubin Negative (NEGATIVE) Urine Urobilinogen Normal MG/DL (0.0-1.0) Urine Leukocyte Esterase 1+ (NEGATIVE) H Urine RBC 40-60 /HPF (0 - 0) H Urine WBC 2-4 /HPF (0 - 0) Urine Squamous Epithelial Cells Occasional /LPF Urine Amorphous Sediment Few /LPF (NONE) H Urine Bacteria Many /HPF (NONE) H Urine Eosinophils None seen Urine Random Sodium 25 mmol/L Urine Potassium Timed 39 mmol/L Test 06/21/17 03:45 06/21/17 08:14 White Blood Count 12.7 K/UL (4.8-10.8) H Red Blood Count 3.08 M/UL (4.70-6.10) L Hemoglobin 9.1 G/DL (14.2-18.0) L Hematocrit 29.1 % (42.0-52.0) L Mean Corpuscular Volume 94 FL (80-99) Mean Corpuscular Hemoglobin 29.7 PG (27.0-31.0) Mean Corpuscular Hemoglobin Concent 31.4 G/DL (32.0-36.0) L Red Cell Distribution Width 16.6 % (11.6-14.8) H Platelet Count 105 K/UL (150-450) L Mean Platelet Volume 8.8 FL (6.5-10.1) Neutrophils (%) (Auto) % (45.0-75.0) Lymphocytes (%) (Auto) % (20.0-45.0) Monocytes (%) (Auto) % (1.0-10.0) Eosinophils (%) (Auto) % (0.0-3.0) Basophils (%) (Auto) % (0.0-2.0) Sodium Level 132 mEQ/L (135-145) L Potassium Level 5.6 mEQ/L (3.4-4.9) H Chloride Level 97 mEQ/L (98-107) L Carbon Dioxide Level 19 mEQ/L (20-30) L Anion Gap 16 (5-15) H Blood Urea Nitrogen 50 mg/dL (7-23) H Creatinine 2.7 mg/dL (0.7-1.2) #H Estimat Glomerular Filtration Rate mL/min (>60) Glucose Level 150 mg/dL (74-106) H Lactic Acid Level 2.60 mmol/L (0.66-2.22) H Uric Acid 10.4 mg/dL (3.0-7.5) H Calcium Level 7.7 mg/dL (8.6-10.2) L Phosphorus Level 7.6 mg/dL (2.5-4.8) H Magnesium Level 2.0 mg/dL (1.7-2.5) Total Bilirubin 0.6 mg/dL (0.0-1.2) Gamma Glutamyl Transpeptidase 116 U/L (8-61) H Aspartate Amino Transf (AST/SGOT) 4992 U/L (5-40) H Alanine Aminotransferase (ALT/SGPT) 3232 U/L (3-41) H Alkaline Phosphatase 152 U/L (40-129) H Total Creatine Kinase 1443 U/L (38-174) H Troponin I 0.57 ng/mL (<=0.30) *H C-Reactive Protein, Quantitative 8.1 mg/dL (< 0.5) H Pro-B-Type Natriuretic Peptide 87754 pg/mL (0-125) H Total Protein 6.3 g/dL (6.6-8.7) L Albumin 3.0 g/dL (3.5-5.2) L Globulin 3.3 g/dL Albumin/Globulin Ratio 0.9 (1.0-2.7) L Arterial Blood pH 7.253 (7.350-7.450) Arterial Blood Partial Pressure CO2 45.5 mmHg (35.0-45.0) H Arterial Blood Partial Pressure O2 164.9 mmHg (75.0-100.0) H Arterial Blood HCO3 19.6 mmol/L (22.0-26.0) L Arterial Blood Oxygen Saturation 98.7 % (92.0-98.0) H Arterial Blood Base Excess -7.2 Raphael Test Positive IVONNE BURLESON Jun 21, 2017 09:24
[2017-06-21] MEDS ORDERED: Calcium Gluconate 1gm/10ml vial ONE (09:29)
[2017-06-21] MEDS ORDERED: Sodium Polystyrene Sulfonate 15gm Powder ORAL ONE (09:30)
--- NOTE | 2017-06-21 10:27 | General Progress Note ---
Assessment/Plan Status: deteriorating Status Narrative appears brain by breathing criteria Assessment/Plan s/p Code blue 7 times- no spontaneous breathing when off vent Septic Shock on Pressors Acute renal failure Acute respiratory failure Plan: Aguilera could not be inserted ABG noted Dialysis cath in, but no dialysis indicated Hemodynamic support Gastric support Discussed with RN Dr Nevarez will contact family regarding terminal extubation Subjective ROS Limited/Unobtainable: Yes Allergies: Coded Allergies: IBUPROFEN (Verified Allergy, Unknown, 06/19/17) Objective Last 24 Hour Vital Signs Date Time Temp Pulse Resp B/P Pulse Ox O2 Delivery O2 Flow Rate FiO2 06/21/17 10:00 108 20 134/80 100 Mechanical Ventilator 50 06/21/17 09:30 106 20 119/73 100 Mechanical Ventilator 50 06/21/17 09:00 108 20 115/66 100 Mechanical Ventilator 50 06/21/17 08:30 106 20 110/85 100 Mechanical Ventilator 50 06/21/17 08:00 108 06/21/17 08:00 113/75 06/21/17 08:00 50 06/21/17 08:00 107 20 113/75 100 Mechanical Ventilator 50 06/21/17 07:45 106 20 102/79 100 Mechanical Ventilator 50 06/21/17 07:30 109 20 126/93 100 Mechanical Ventilator 50 06/21/17 07:15 108 20 172/97 100 Mechanical Ventilator 50 06/21/17 07:00 99.1 112 20 153/94 100 Mechanical Ventilator 50 06/21/17 07:00 109 20 50 06/21/17 07:00 154/97 06/21/17 06:37 65/47 06/21/17 06:30 111 21 200/109 100 Mechanical Ventilator 60 06/21/17 06:00 111 20 132/87 100 Mechanical Ventilator 60 06/21/17 06:00 132/87 06/21/17 05:30 111 20 126/88 100 Mechanical Ventilator 60 06/21/17 05:16 111 20 60 06/21/17 05:00 114/76 06/21/17 05:00 110 20 114/76 100 Mechanical Ventilator 60 06/21/17 04:30 113 26 114/81 100 Mechanical Ventilator 60 06/21/17 04:00 60 06/21/17 04:00 99.4 113 30 114/87 100 Mechanical Ventilator 80 06/21/17 04:00 114/87 06/21/17 04:00 110 06/21/17 03:30 112 37 125/71 100 Mechanical Ventilator 80 06/21/17 03:15 104 20 60 06/21/17 03:00 121/87 06/21/17 03:00 112 42 121/87 100 Mechanical Ventilator 80 06/21/17 02:30 112 36 114/88 100 Mechanical Ventilator 80 06/21/17 02:00 106 31 81/60 100 Mechanical Ventilator 80 06/21/17 02:00 81/60 06/21/17 01:30 107 41 90/63 100 Mechanical Ventilator 80 06/21/17 01:00 122/78 06/21/17 01:00 113 35 122/78 100 Mechanical Ventilator 80 06/21/17 00:55 113 20 80 06/21/17 00:30 112 35 127/84 100 Mechanical Ventilator 80 06/21/17 00:00 98.9 111 38 109/80 100 Mechanical Ventilator 80 06/21/17 00:00 109/80 06/21/17 00:00 111 06/21/17 00:00 80 06/20/17 23:30 103 35 80/58 100 Mechanical Ventilator 80 06/20/17 23:29 89/64 06/20/17 23:00 123/80 06/20/17 23:00 108 20 123/80 100 Mechanical Ventilator 100 06/20/17 22:40 98 20 100 06/20/17 22:30 60 13 170/93 100 Mechanical Ventilator 100 06/20/17 22:00 103 23 93/72 100 Mechanical Ventilator 60 06/20/17 22:00 93/72 06/20/17 21:30 105 20 91/66 100 Mechanical Ventilator 60 06/20/17 21:10 106 20 50 06/20/17 21:00 105 18 106/67 100 Mechanical Ventilator 60 06/20/17 21:00 106/67 06/20/17 20:30 105 23 99/65 100 Mechanical Ventilator 60 06/20/17 20:00 102 06/20/17 20:00 96/60 06/20/17 20:00 102 20 96/60 100 Mechanical Ventilator 60 06/20/17 20:00 60 06/20/17 19:30 98.9 94 14 72/47 100 Mechanical Ventilator 60 06/20/17 19:15 97 20 50 06/20/17 19:00 104 18 177/98 100 Mechanical Ventilator 60 06/20/17 18:30 106 16 154/80 100 Mechanical Ventilator 60 06/20/17 18:00 105 20 145/95 100 Mechanical Ventilator 60 06/20/17 17:30 106 15 165/95 98 Mechanical Ventilator 60 06/20/17 17:10 140/88 06/20/17 17:00 107 16 140/88 98 Mechanical Ventilator 60 06/20/17 17:00 50 06/20/17 16:44 107 20 50 06/20/17 16:30 106 20 144/62 98 Mechanical Ventilator 60 06/20/17 16:00 99.5 108 24 106/68 98 Mechanical Ventilator 60 06/20/17 16:00 109 06/20/17 16:00 60 06/20/17 15:30 110 22 171/91 98 Mechanical Ventilator 60 06/20/17 15:00 111 22 156/96 98 Mechanical Ventilator 60 06/20/17 14:48 112 20 60 06/20/17 14:30 114 22 133/95 98 Mechanical Ventilator 60 06/20/17 14:00 115 20 134/93 98 Mechanical Ventilator 60 06/20/17 13:30 117 20 112/83 98 Mechanical Ventilator 60 06/20/17 13:00 115 22 105/75 100 Mechanical Ventilator 60 06/20/17 12:31 118 20 60 06/20/17 12:30 99.7 119 23 92/77 100 Mechanical Ventilator 60 06/20/17 12:00 119 24 105/75 100 Mechanical Ventilator 60 06/20/17 12:00 119 06/20/17 11:45 118 25 93/77 100 Mechanical Ventilator 60 06/20/17 11:30 118 30 112/73 100 Mechanical Ventilator 60 06/20/17 11:15 114 25 88/64 100 Mechanical Ventilator 60 06/20/17 11:00 115 26 122/80 100 Mechanical Ventilator 60 06/20/17 10:45 114 20 113/95 100 Mechanical Ventilator 60 06/20/17 10:31 117 20 60 06/20/17 10:30 114 20 86/60 100 Mechanical Ventilator 60 Intake and Output 06/20/17 06/21/17 19:00 07:00 Intake Total 1691.0 ml 2388.7 ml Output Total 10 ml 95 ml Balance 1681.0 ml 2293.7 ml Intake Oral 0 ml IV Total 1691.0 ml 2088.7 ml Blood Product 300 ml Output Urine Total 10 ml 95 ml Laboratory Tests 06/20/17 11:00: Urine Color Yellow, Urine Appearance Cloudy, Urine pH 5, Urine Specific [place] 1.020, Urine Protein 3+H, Urine Glucose (UA) 1+H, Urine Ketones 1+H, Urine Occult Blood 5+H, Urine Nitrite Negative, Urine Bilirubin Negative, Urine Urobilinogen Normal, Urine Leukocyte Esterase 1+H, Urine RBC 40-60H, Urine WBC 2 -4, Urine Squamous Epithelial Cells Occasional, Urine Amorphous Sediment FewH, Urine Bacteria ManyH, Urine Eosinophils None seen, Urine Random Sodium 25, Urine Potassium Timed 39 06/20/17 22:15: Lactic Acid Level 4.30H 06/21/17 03:45: Lactic Acid Level 2.60H, White Blood Count 12.7H, Red Blood Count 3.08L, Hemoglobin 9.1L, Hematocrit 29.1L, Mean Corpuscular Volume 94, Mean Corpuscular Hemoglobin 29.7, Mean Corpuscular Hemoglobin Concent 31.4L, Red Cell Distribution Width 16.6H, Platelet Count 105L, Mean Platelet Volume 8.8, Neutrophils (%) (Auto) , Lymphocytes (%) (Auto) , Monocytes (%) (Auto) , Eosinophils (%) (Auto) , Basophils (%) (Auto) , Sodium Level 132L, Potassium Level 5.6H, Chloride Level 97L, Carbon Dioxide Level 19L, Anion Gap 16H, Blood Urea Nitrogen 50H, Creatinine 2.7#H, Estimat Glomerular Filtration Rate , Glucose Level 150H, Uric Acid 10.4H, Calcium Level 7.7L, Phosphorus Level 7.6H, Magnesium Level 2.0, Total Bilirubin 0.6, Gamma Glutamyl Transpeptidase 116H, Aspartate Amino Transf (AST/SGOT) 4992H, Alanine Aminotransferase (ALT/SGPT) 3232H, Alkaline Phosphatase 152H, Total Creatine Kinase 1443H, Troponin I 0.57*H , C-Reactive Protein, Quantitative 8.1H, Pro-B-Type Natriuretic Peptide 40877Y, Total Protein 6.3L, Albumin 3.0L, Globulin 3.3, Albumin/Globulin Ratio 0.9L 06/21/17 08:14: Arterial Blood pH 7.253L, Arterial Blood Partial Pressure CO2 45.5H, Arterial Blood Partial Pressure O2 164.9H, Arterial Blood HCO3 19.6L, Arterial Blood Oxygen Saturation 98.7H, Arterial Blood Base Excess -7.2, Raphael Test Positive 06/21/17 08:30: Lactic Acid Level [Pending] Height (Feet): 5 Height (Inches): 4.00 Weight (Pounds): 130 General Appearance: no apparent distress, other - on pressors Cardiovascular: tachycardia Respiratory/Chest: rhonchi - bilaterally Abdomen: distended Neurologic: other - no spontaneous breathing ADEEL MAXWELL Jun 21, 2017 10:27
[2017-06-21] MEDS ORDERED: Calcium Gluconate 1gm in NS 110ml IVPB ONE (10:30)
[2017-06-21] MEDS ORDERED: NS 275ml ONE ×2 (10:45→15:00)
--- NOTE | 2017-06-21 10:55 | Diagnostic Imaging Report ---
Indication: Pneumothorax. Followup Comparison: 06/20/17 A single view chest radiograph was obtained. Findings: There is a pneumothorax that is increasing on the right side. There is eversion and depression of the right hemidiaphragm. Tubes and lines are unchanged. Heart size is stable. Impression: Worsening moderate size right pneumothorax. Chest tube should be inserted as there is risk of a tension pneumothorax as the patient is intubated. Films reviewed and discussed with consulting surgeon Dr. Lawrence 10:40 a.m., 06/21/17
--- NOTE | 2017-06-21 10:57 | General Progress Note ---
Progress Note Progress Note I was requested by Dr arnold to place a right chest tube for pneumothorax. However he then said to hold on chest tube placement pending neuro eval and decision from family regarding possible terminal extubation MONICA PENN Jun 21, 2017 10:57
[2017-06-21] MEDS ORDERED: D5NS 1,000 ML IV SCH ×2 (11:00→21:15)
[2017-06-21] MEDS: LORazepam Inj 2mg/ml 1ml IV PRN (11:50)
--- NOTE | 2017-06-21 12:56 | Neurology Progress Note ---
Interim History Interim History ROS Limited/Unobtainable: Yes Objective Physical Exam Last Vital Signs Date Time Temp Pulse Resp B/P Pulse Ox O2 Delivery O2 Flow Rate FiO2 06/21/17 12:00 107 06/21/17 12:00 50 06/21/17 12:00 99.2 20 93/80 100 Mechanical Ventilator 06/19/17 16:55 50.0 Laboratory Tests Test 06/20/17 22:15 06/21/17 03:45 06/21/17 08:14 06/21/17 08:30 Lactic Acid Level 4.30 mmol/L (0.66-2.22) H 2.60 mmol/L (0.66-2.22) H 2.80 mmol/L (0.66-2.22) H White Blood Count 12.7 K/UL (4.8-10.8) H Red Blood Count 3.08 M/UL (4.70-6.10) L Hemoglobin 9.1 G/DL (14.2-18.0) L Hematocrit 29.1 % (42.0-52.0) L Mean Corpuscular Volume 94 FL (80-99) Mean Corpuscular Hemoglobin 29.7 PG (27.0-31.0) Mean Corpuscular Hemoglobin Concent 31.4 G/DL (32.0-36.0) L Red Cell Distribution Width 16.6 % (11.6-14.8) H Platelet Count 105 K/UL (150-450) L Mean Platelet Volume 8.8 FL (6.5-10.1) Neutrophils (%) (Auto) % (45.0-75.0) Lymphocytes (%) (Auto) % (20.0-45.0) Monocytes (%) (Auto) % (1.0-10.0) Eosinophils (%) (Auto) % (0.0-3.0) Basophils (%) (Auto) % (0.0-2.0) Sodium Level 132 mEQ/L (135-145) L Potassium Level 5.6 mEQ/L (3.4-4.9) H Chloride Level 97 mEQ/L (98-107) L Carbon Dioxide Level 19 mEQ/L (20-30) L Anion Gap 16 (5-15) H Blood Urea Nitrogen 50 mg/dL (7-23) H Creatinine 2.7 mg/dL (0.7-1.2) #H Estimat Glomerular Filtration Rate mL/min (>60) Glucose Level 150 mg/dL (74-106) H Uric Acid 10.4 mg/dL (3.0-7.5) H Calcium Level 7.7 mg/dL (8.6-10.2) L Phosphorus Level 7.6 mg/dL (2.5-4.8) H Magnesium Level 2.0 mg/dL (1.7-2.5) Total Bilirubin 0.6 mg/dL (0.0-1.2) Gamma Glutamyl Transpeptidase 116 U/L (8-61) H Aspartate Amino Transf (AST/SGOT) 4992 U/L (5-40) H Alanine Aminotransferase (ALT/SGPT) 3232 U/L (3-41) H Alkaline Phosphatase 152 U/L (40-129) H Total Creatine Kinase 1443 U/L (38-174) H Troponin I 0.57 ng/mL (<=0.30) *H C-Reactive Protein, Quantitative 8.1 mg/dL (< 0.5) H Pro-B-Type Natriuretic Peptide 57592 pg/mL (0-125) H Total Protein 6.3 g/dL (6.6-8.7) L Albumin 3.0 g/dL (3.5-5.2) L Globulin 3.3 g/dL Albumin/Globulin Ratio 0.9 (1.0-2.7) L Arterial Blood pH 7.253 (7.350-7.450) Arterial Blood Partial Pressure CO2 45.5 mmHg (35.0-45.0) H Arterial Blood Partial Pressure O2 164.9 mmHg (75.0-100.0) H Arterial Blood HCO3 19.6 mmol/L (22.0-26.0) L Arterial Blood Oxygen Saturation 98.7 % (92.0-98.0) H Arterial Blood Base Excess -7.2 Raphael Test Positive Impression/Recommendations Status: deteriorating Recommendations #[id number] ELROY NEWELL Jun 21, 2017 12:56
[2017-06-21] MEDS ORDERED: D5NS 1000ml IV ONE ×2 (15:00)
[2017-06-21] MEDS ORDERED: Tubing Blood Filter IV ONE (15:00)
[2017-06-21] MEDS ORDERED: Sterile Water Irrig 1000ml IRRIG ONE (15:00)
[2017-06-21] MEDS ORDERED: Vancomycin 750mg/D5W 275ml IVPB ONE ×2 (21:00)
--- NOTE | 2017-06-22 01:47 | Consultation ---
DATE OF CONSULTATION: 06/21/2017 NEUROLOGICAL CONSULTATION REQUESTING PHYSICIAN: Brittanie Nevarez M.D. ATTENDING PHYSICIAN: Jeff Hamm M.D. HISTORY OF PRESENT ILLNESS: This is a 72-year-old male, resident of a nursing care facility, was admitted to this hospital with a fever of 101 and progressive changes in mental status. The patient reportedly has a brain dysfunction, minimally cognitive at his baseline. He has preexistent multiple medical issues. On arrival, his vital signs appear stable. Blood pressure 142/63, heart rate of 110, and temperature 97. He was described as being aphasic and generalized motor weakness, nonverbal, severe distress, chronically ill appearing, man. In view of acute respiratory failure and bradycardia, he was intubated, started on mechanical ventilation. Since admission to the emergency room, the patient was Coded for a total of seven times. He lost pulses. Chest compression were given. Returned to ventricular fibrillation and was defibrillated three times. Ultimately, he regained pulses. He remained intubated. Now, his latest laboratory work included CBC study with WBC 12.7, hemoglobin 9.1, hematocrit 29.1, sedimentation rate of 19. Coagulopathy, INR 1.5. Urinalysis, 3+ protein and 1+ ketones. His chemistry panel on admission, CK of 180, amylase 140. Subsequently, troponin went up to 0.87. Lactic acid , while normal B12 and CEA. Lactic acid 14.20 . BUN 28 and creatinine 1.3. The patient suspected to have brain and apnea test was performed. Reportedly, the patient initially was without any spontaneous respiration and within 5 minutes, he had a few attempts to breathe. Suctioning produced no gag response and no spontaneous movement was noted. PAST MEDICAL HISTORY: This included chronic seizure disorder, COPD, hypertension, prostate CA, hyperlipidemia, pneumonia, respiratory failure, severe cognitive dysfunction, and diabetes type 2, and has a history of fracture of the thoracic bone. MEDICATIONS: Treatment prior to admission included hydrochlorothiazide, omeprazole, lisinopril, Atrovent, and albuterol. FAMILY HISTORY: Unavailable. SOCIAL HISTORY: Resident of nursing facility. Limited information. REVIEW OF SYMPTOMS: The patient is unresponsive. PHYSICAL EXAMINATION: GENERAL: A well-developed, ill-appearing, elderly man. VITAL SIGNS: Current vital signs including heart rate of 107, temperature 99.2, blood pressure 93/80, on mechanical ventilator. Rate established 20, no evidence of overbreathing noted. HEENT: Head, normocephalic. There is no evidence of trauma. Eyes, ears, and throat are clear. NECK: Supple. No meningeal signs MUSCULOSKELETAL: No deformities. Peripheral pulses are 1+ in both upper extremities. Unable to test dorsalis pedis pulses. MENTAL STATUS: No response to painful stimulation or suctioning. CRANIAL NERVE II: Pupils are 3 mm fixed. Extraocular movements none on doll maneuver. Eyes , produced no eye movement. No grimacing. CRANIAL NERVE V: Absent corneal responses. CRANIAL NERVE VII: No facial movement. CRANIAL NERVES IX THROUGH XII: Unable to test. Tongue is midline. Absent gag response. MOTOR EXAMINATION: Flaccid both upper and lower extremities. No spontaneous movement noted including on painful stimulation. Deep tendon reflexes absent. No pathological responses. SENSORY EXAM: No response to pain stimulation. IMPRESSION: 1. Probably brain . 2. Severe anoxic encephalopathy. 3. Status post multiple episodes of cardiorespiratory arrest. DISCUSSION: The patient with a preexistent significant cognitive deficiency, multiple medical issues, developed respiratory failure and required intubation followed by at least seven cardiorespiratory arrests with resuscitation of cardiac activities. The patient has all criteria of brain with exception reported a few episodes of spontaneous respiration while tested for apnea test. Certainly, this may represent a severe anoxic encephalopathy and it is a futile care. For this reason, discontinue life support. I agree with discontinuing life support as requested by the family. Yung Landrum M.D. DR: JOSE DAVID JOB#: [id number] CC:
--- NOTE | 2017-06-22 17:57 | Cardiology Report ---
APPROVED REPORT EKG Measurement Heart [id number] Suspect arm lead reversal, interpretation assumes no reversal Sinus rhythm with sinus arrhythmia with 1st degree AV block Rightward axis Pulmonary disease pattern Nonspecific T wave abnormality Abnormal ECG
--- NOTE | 2017-06-23 08:26 | Diagnostic Imaging Report ---
Indication:Abdominal pain Technique: Grayscale and duplex Doppler imaging of the abdomen performed. Comparison: None Findings: There is gallbladder wall thickening present. There is a small amount of ascites. The liver is unremarkable. Portal vein patent by Doppler. Kidneys appear echogenic. Aorta and IVC appear grossly unremarkable. The pancreas is poorly seen but grossly unremarkable. Spleen is unremarkable. There is no hydronephrosis. CBD is 4 mm in diameter. Impression: Gallbladder wall thickening nonspecific Trace ascites.
--- NOTE | 2017-06-23 08:31 | Cardiology Report ---
APPROVED REPORT EXAM: Two-dimensional and M-mode echocardiogram with Doppler and color Doppler. INDICATION Arrhythmia Technically difficult study due to poor acoustical windows. Subcostal views only. M-mode measurements of left ventricle not obtainable due to cardiac position (angle) Normal left ventricular chamber size, systolic function and wall motion to extent visualized. Left ventricular ejection fraction grossly is estimated to be 50%. This study precludes an accurate assessment of LV regional wall motion. Moderate right ventricular enlargement with reduced RV systolic function. Focal aortic valve sclerosis with adequate cusp excursion. Thickened mitral valve leaflets with normal excursion. Mitral annulus and aortic root calcification. Normal pulmonic valve structure. Normal tricuspid valve structure. IVC at normal size with physiologic collapse. A color flow and spectral Doppler study was performed and revealed: Moderate aortic regurgitation. Mild mitral regurgitation. Mild to moderate tricuspid regurgitation. Tricuspid systolic velocities suggests peak right ventricular systolic pressure of 47mmHg, consistent with moderate pulmonary hypertension. Trace pulmonic regurgitation present.
--- NOTE | 2017-06-24 12:37 | Discharge Summary ---
Discharge Summary Hospital Course Date of Admission Jun 19, 2017 at 15:05 Date of Discharge Jun 21, 2017 at 15:01 Admitting Diagnosis respiratory failure, pulmonary edema HPI Kalin Rosa is a 72 year old male who was admitted on Jun 19, 2017 at 15: 05 for Respiratory Failure, Pulmonary Edema Hospital Course summary#[id number] Discharge Discharge Disposition Patient Discharge Diagnoses: Discharge Instructions Discharge Instructions Special Instructions I have been assigned to complete a D/C Summary on this account. I was not involved in the patient management Khushi Mckay NP ([facility]) Jun 24, 2017 12:37
--- NOTE | 2017-06-25 04:45 | Discharge Summary 2 SIG ---
SUMMARY DATE OF ADMISSION: 06/19/2017 DATE OF EXPIRATION: 06/21/2017. REASON FOR ADMISSION: 72 years old male with past medical history significant for prostate cancer, chronic obstructive pulmonary disease, hypertension, seizure disorder, diabetes, and gastroesophageal reflux disease, presented with worsening mental status. The patient noted to be febrile at the retirement with a fever of 101. The patient minimally cognitive at the baseline. Nursing staff noted difficulties in breathing. Workup in the emergency room revealed tachycardia, tachypnea, The patient was initially placed on oxygen via nasal cannula, but then desaturated and required emergency orotracheal intubation along with the placement of central line for possible pressors due to low blood pressure. White blood count- 4.8, hemoglobin -10.7, and hematocrit -36.1. BUN -18, creatinine -0.7. K-5.8. Troponin negative. Lactic acid -3.5. ABG were done right after intubation and showed pH - 7.182, pCO2 -70.1, and O2 saturation -98% on settings of 600, 16, and 55%. CXR with evidence of bilateral infiltrates. The patient was admitted to ICU for further management. ADMITTING DIAGNOSES: 1. Septic shock. 2. Sepsis. 3. Acute respiratory failure, requiring intubation. 4. Pneumonia. 5. Hyperkalemia 6. Acute encephalopathy. 7. Cognitive dysfunction. 8. Anemia. Hospital Stay: The patient admitted to the intensive care unit. Ventilator support provided. Pulmonary toilet provided. Setting adjusted as needed. Overnight, the patient had several bouts of cardiopulmonary arrest, pulseless electrical activity, and bradycardia. Each time he was resuscitated. The patient was on pressors for hemodynamic support, unable to be weaned from pressors. Cardiology consult was requested. Hoop Punch And Coiler Operator Helper seen and evaluated the patient. Per Cardiology, prognosis was extremely poor after 6 arrests. He recommended family to consider DNR status. The etiology for cardiopulmonary arrest arrest as per Cardiology included multiple causes such as infectious, acidosis, electrolyte abnormality, pulmonary issues, and CVA. Hoop Punch And Coiler Operator Helper stated that likelihood to have a meaningful recovery after six arrests was very low. At the same time, ICU care was continued until family decision. Echo revealed ejection fraction of 50% and right ventricular systolic pressure of 47 consistent with moderate pulmonary hypertension. There was evidence of moderate aortic regurgitation, mild to moderate tricuspid regurgitation. Venous duplex revealed chronic thrombus, common femoral vein right lower extremity. The patient developed acute renal failure. Nephrology consult requested. Hemodialysis catheter placed by Interventional Radiology for possible hemodialysis. Electrolytes and renal parameters were closely monitored. Nephrotoxics were avoided. Infectious Disease doctor followed. Blood culture were negative. Urine culture were negative. The patient was on antibiotics for pneumonia. Chest x-ray initially after intubation on 06/19/2017 was stable with a good endotracheal position, but showed bilateral infiltrates. Chest x-ray on 06/20/2017 revealed development of right pneumothorax, and chest x-ray on 06/21/2017 showed worsening moderate sized right pneumothorax. General Surgery consult was requested for placement of chest tube. At the same time, neurologist seen and evaluated the patient. Per Neurology, the patient likely had a brain with severe anoxic encephalopathy. He stated that them patient had met criteria of brain with exceptions reported of few episodes of spontaneous respiration while tested for apnea test. Per neurologist the future care would be futile given severe anoxic encephalopathy. Neurologist recommended to discontinue life support. He stated he would agree with this decision, if requested by family. General surgeon did not put chest tube since family at that time made decision about terminal extubation. Abdominal ultrasound was done due to the elevated LFT, it showed gallbladder wall thickness, but no other abnormalities. LFTs were closely monitored. Initial LFT were negative and the same day later in the evening, the blood tests revealed AST - 728, ALT - 441 and alkaline phosphatase -236. 236. Next day, on the 06/20/2017, AST and ALT were more elevated. LDH is Noted elevated troponin. According to wet finisher, myonecrosis was related to cardiopulmonary arrest. Renal parameters were getting worse. Lactic acid was high. ABG on 06/21/2017 still acidotic, with pH 7.253, hypercapnia better, pCO2 -45.5, with tidal volume 600, AC 20, and FiO2 of 50%. Settings titrated as needed. Family decided on terminal extubation and DNR/DNI status. Afterwards, the patient was terminally extubated, off pressors at 14:18, he became bradycardic and then in asystole . At 14:22, the patient was pronounced. Cause of : cardiopulmonary arrest. FINAL DIAGNOSES: 1. Sepsis 2. Septic shock. 3. Acute hypercapnic hypoxemic respiratory failure requiring intubation. 4. Bilateral pneumonia. 5. Right pneumothorax. 6. Status post recurrent bouts of cardiopulmonary arrest, pulseless electrical activity, and bradycardia. 7. Acute encephalopathy (likely due to sepsis). 8 Myonecrosis related to cardiopulmonary resuscitation. 9. Hyperkalemia. 10. Anemia. 11. Transaminitis, likely shock liver. 12. Severe metabolic acidosis. 13.Cognitive dysfunction. Jeff Hamm M.D. I have been assigned to dictate discharge summary on this account and I was not involved in the patient's management. Khushi Mckay ([facility] armando N.PTwyla DR: ULICES JOB#: [id number] CC: [id number]
== END 2017-06-21 15:01 | disposition expired | DRG 871 ==
LOC: EDBD 12:47 → EMR 13:45 → ICU 15:05 → EDBEDREQ 15:47
PROC: 0BH17EZ Insertion of Endotracheal Airway into Trachea, Via Natural or Artificial Opening (ICD-10-PCS; principal; 2017-06-19)
PROC: 5A1945Z Respiratory Ventilation, 24-96 Consecutive Hours (ICD-10-PCS; principal; 2017-06-19)
PROC: 5A2204Z Restoration of Cardiac Rhythm, Single (ICD-10-PCS; principal; 2017-06-19)
PROC: 5A12012 Performance of Cardiac Output, Single, Manual (ICD-10-PCS; principal; 2017-06-19)
PROC: 05HM33Z Insertion of Infusion Device into Right Internal Jugular Vein, Percutaneous Approach (ICD-10-PCS; principal; 2017-06-19)
PROC: 30233K1 Transfusion of Nonautologous Frozen Plasma into Peripheral Vein, Percutaneous Approach (ICD-10-PCS; 2017-06-20)
PROC: 06H033Z Insertion of Infusion Device into Inferior Vena Cava, Percutaneous Approach (ICD-10-PCS; 2017-06-20)
DX: A41.9 Sepsis, unspecified organism (principal); R65.21 Severe sepsis with septic shock; J96.02 Acute respiratory failure with hypercapnia; I46.9 Cardiac arrest, cause unspecified; K72.00 Acute and subacute hepatic failure without coma; J18.9 Pneumonia, unspecified organism; G93.49 Other encephalopathy; A48.0 Gas gangrene; G93.1 Anoxic brain damage, not elsewhere classified; N17.9 Acute kidney failure, unspecified; J93.9 Pneumothorax, unspecified; Z88.6 Allergy status to analgesic agent; Z85.46 Personal history of malignant neoplasm of prostate; K21.9 Gastro-esophageal reflux disease without esophagitis; J44.9 Chronic obstructive pulmonary disease, unspecified; E11.9 Type 2 diabetes mellitus without complications; H40.9 Unspecified glaucoma; R00.1 Bradycardia, unspecified; E87.5 Hyperkalemia; Z66 Do not resuscitate; I27.2 Other secondary pulmonary hypertension; I35.1 Nonrheumatic aortic (valve) insufficiency; I36.1 Nonrheumatic tricuspid (valve) insufficiency; G40.909 Epilepsy, unspecified, not intractable, without status epilepticus; R13.10 Dysphagia, unspecified
CPT/HCPCS: 31500; 36415; 36569; 36600; 71010; 76700; 76937; 80053; 81001; 82150; 82270; 82378; 82550; 82553; 82607; 82746; 82803; 82962; 82977; 83540; 83550; 83605; 83615; 83735; 83880; 84100; 84133; 84300; 84484; 84550; 85007; 85025; 85044; 85060; 85610; 85651; 85730; 86140; 86850; 86900; 86901; 86927; 87040; 87081; 87086; 89050; 92950; 93005; 93306; 93970; 94002; 94003; 94640; 94664; J1815